=== PATIENT | male | born 1935 | race Caucasian/White ===

== ENCOUNTER 2020-07-16 06:47 | Inpatient (IN) | payer OTHER, MEDICARE ==
[~2020-07-16] VITALS: Ht 177.8 cm; Wt 113.1 kg
[~2020-07-16 06:47] MED LIST: CEPH500 PO; HYDACE5 PO; PRED20 PO
[2020-07-16 07:11] LABS: BASOPHILS ABSOLUTE AUTO 0.07 K/mm3 (0.00-0.23); BASOPHILS PERCENT AUTO 1 % (0-2); EOSINOPHILS PERCENT AUTO 1 % (0-6); Hematocrit 37.4 % (37.0-53.0); Hemoglobin 11.3 g/dL (13.5-17.5); IMMATURE GRAN ABSOLUTE AUTO 0.11 K/mm3 (0.00-0.10); IMMATURE GRAN PERCENT AUTO 1 % (0-1); LYMPHOCYTES ABSOLUTE AUTO 1.37 K/mm3 (0.84-5.20); LYMPHOCYTES PERCENT AUTO 9 % (21-46); MONOCYTES ABSOLUTE AUTO 1.06 K/mm3 (0.16-1.47); MONOCYTES PERCENT AUTO 7 % (4-13); Mean Corpuscular HGB 24.5 pg (26.0-34.0); Mean Corpuscular HGB Conc 30.2 g/dL (31.5-36.5); Mean Corpuscular Volume 81 fL (80-100); Mean Platelet Volume 11.2 fL (9.1-12.4); NEUTROPHILS ABSOLUTE AUTO 12.26 K/mm3 (1.96-9.15); NEUTROPHILS PERCENT AUTO 82 % (41-73); Platelet Count 294 K/mm3 (150-400); RDW Standard Deviation 50.2 fL (35.1-46.3); Red Blood Cell Count 4.61 M/mm3 (4.30-5.90); White Blood Cell Count 14.97 K/mm3 (4.00-11.30)
[2020-07-16 07:24] LABS: Alanine Aminotransfer (ALT/SGP 13 U/L (12-78); Albumin, Blood 3.1 g/dL (3.4-5.0); Albumin/Globulin Ratio 0.6 (0.8-1.8); Alk Phos 108 U/L (50-136); Anion Gap 5 mmol/L (6-16); Aspartate Aminotrans (AST/SGOT 8 U/L (12-37); Bilirubin, Total 0.4 mg/dL (0.1-1.0); Blood Urea Nitrogen 19 mg/dL (8-24); Bun/Creatinine Ratio 22.6 (12.0-20.0); CO2, Blood 30 mmol/L (21-32); Chloride, Blood 100 mmol/L (98-108); Creatinine, Blood 0.84 mg/dL (0.60-1.20); Globulin, Blood 4.8 g/dL (2.2-4.0); Glomerular Filtration Rate >60 (60-); Glucose, Blood 133 mg/dL (70-99); Potassium, Blood 3.3 mmol/L (3.5-5.5); Sodium, Blood 135 mmol/L (136-145); Total Protein, Blood 7.9 g/dL (6.4-8.2)
[2020-07-16 08:15] LABS: Source, Urine Catheter
[2020-07-16 08:23] LABS: Appearance, Urine Cloudy (Clear); Bilirubin, Urine Neg (Neg); Blood, Urine 5+ (Neg); Color, Urine Yellow (P-Yellow); Glucose Qualitative, Urine Neg (Neg); Ketones, Urine Neg (Neg); Leukocyte Esterase, Urine 3+ (Neg); Nitrite, Urine Pos (Neg); Protein, Urine 2+ (Neg); Specific Gravity, Urine 1.015 (1.003-1.022); Urobilinogen, Urine NORM (Normal)
[2020-07-16 08:48] LABS: Bacteria Many /hpf; Red Blood Cells, Urine 50-100 /hpf (0-2); Squamous Epithelial Cells Not Seen /hpf (Few); White Blood Cells, Urine TNTC /hpf (0-5)
[2020-07-16] MEDS ORDERED: CHLO25B PO (16:34)
[2020-07-16] MEDS ORDERED: VITAMIN D31000 UNI1 PO (16:34)
[2020-07-16] MEDS ORDERED: TAMS.4ER PO (16:35)
[2020-07-16] MEDS ORDERED: DICLOFENAC SOD100 GM TOP (16:35)
--- NOTE | 2020-07-16 17:06 | NUR ---
NEW ER ADMIT PT ARRIVE TO RM 1300. HEAVY 1 ASSIST STAND/PIVOT FROM GURNEY TO BED. STATE @ HOME USES MOTORIZED W/C, DOES NOT AMBULATE HOWEVER TRIES TO STAND w FWW OFTEN & PERFORM ROM TO MAINTAIN STRENGTH. HE IS A/O X4, SOMEWHAT [place]. PLEASANT, COOPERATIVE AFFECT. DX UTI/SEPSIS, HE WAS GIVEN IV ROCEPHIN IN ER. PAINFUL URINARY RETENTION RELIEVED IN ER, QUINN CATH PLACED, DRNG CLOUDY/MILKY URINE. KENTRELL BOSHERYL SCHWARTZ BLE IN PLACE, PT STATE HE WAS SCHEDULED TO HAVE CHANGED WEEKLY- TOMORROW @ [place]. PT ORIENTED TO , CALL SYSTEM, FALL PRECAUTONS. VSS. ORDER FROM TO CHANGE KENTRELL BOOTS RECIEVED.
--- NOTE | 2020-07-17 04:33 | NUR ---
SUMMARY: PT A/OX4, IS SLIGHTLY [place] BUT IS PLEASANT/COOPERATIVE W/CARE AND SPECIFIES NEEDS. JONATHON BOOTS TO BLE'S WERE CHANGED ON DAY SHIFT AND REMAIN C/D/I. HE C/O MILD R.LEG DISCOMFORT AND SAID L.HEEL FELT "RAW". HEELS WAS WARM BUT INSPECTED TO BE WNL AND STAFF ENSURED JONATHON BOOTS WEREN'T TOO TIGHT AND WERE FREE OF CREASES/WRINKLES. DELICIA HOSE WERE REMOVED AND FEET ELEVATED IN BED FOR IMPROVEMENT IN COMFORT. TOES ARE COOL BILATERALLY BUT CAP REFILL INTACT AND TOPS/BOTTOMS OF FEET WERE WARM TO TOUCH. IVF INFUSING AND ABX WERE RECEIVED IN ER FOR UTI. QUINN IS PATENT/DRAINING. PT ASSISTED W/REPOSITIONING T/O NOCTE AND USE MOTORIZED SCOOTER AT BASELINE. BED ALARM ON FOR FALL RISK BUT PT KNOWS TO CALL FOR ASSIST OOB. HE'S A 2P PIVOT T/F TO CHAIR OR BSC. NO ACUTE CHANGES, VSS/AFEBRILE. WCTM AND REPORT TO DAY RN.
[2020-07-17 05:22] LABS: BASOPHILS ABSOLUTE AUTO 0.06 K/mm3 (0.00-0.23); BASOPHILS PERCENT AUTO 1 % (0-2); EOSINOPHILS ABSOLUTE AUTO 0.18 K/mm3 (0.00-0.68); EOSINOPHILS PERCENT AUTO 2 % (0-6); Hematocrit 32.3 % (37.0-53.0); Hemoglobin 9.7 g/dL (13.5-17.5); IMMATURE GRAN ABSOLUTE AUTO 0.04 K/mm3 (0.00-0.10); IMMATURE GRAN PERCENT AUTO 0 % (0-1); LYMPHOCYTES ABSOLUTE AUTO 1.32 K/mm3 (0.84-5.20); LYMPHOCYTES PERCENT AUTO 13 % (21-46); MONOCYTES PERCENT AUTO 8 % (4-13); Mean Corpuscular HGB 24.6 pg (26.0-34.0); Mean Corpuscular Volume 82 fL (80-100); Mean Platelet Volume 11.5 fL (9.1-12.4); NEUTROPHILS ABSOLUTE AUTO 7.59 K/mm3 (1.96-9.15); NEUTROPHILS PERCENT AUTO 76 % (41-73); Platelet Count 242 K/mm3 (150-400); RDW Coefficient Variation 16.8 % (11.7-14.2); Red Blood Cell Count 3.94 M/mm3 (4.30-5.90); White Blood Cell Count 9.99 K/mm3 (4.00-11.30)
[2020-07-17 05:51] LABS: Anion Gap 2 mmol/L (6-16); Blood Urea Nitrogen 15 mg/dL (8-24); Bun/Creatinine Ratio 21.2 (12.0-20.0); CO2, Blood 33 mmol/L (21-32); Calcium, Blood 8.8 mg/dL (8.5-10.1); Chloride, Blood 104 mmol/L (98-108); Creatinine, Blood 0.71 mg/dL (0.60-1.20); Glomerular Filtration Rate >60 (60-); Glucose, Blood 107 mg/dL (70-99); Potassium, Blood 3.7 mmol/L (3.5-5.5); Sodium, Blood 139 mmol/L (136-145)
[2020-07-17] MEDS ORDERED: CEPH500 PO (16:46)
--- NOTE | 2020-07-17 17:43 | NUR ---
PT DISCHARGED THE PT VERBALIZED UNDERSTANDING OF THE DC INSTRUCTIONS, THE PTS PRESCRIPTIONS WERE FAXED TO THE [facility] REQUESTED, THE PT SAID THAT HIS CLOUD ENGINEER WOULD BE ABLE TO PROPERTY MANAGEMENT SPECIALIST THE PRESCRIPTIONS [place], [facility], THE SAID THEY WOULD CALL THE PATIENT TO SCHEDULE THE UROLOGY CLINIC WAS ALSO CALLED AND A MESSAGE WAS LEFT WITH THEM TO CALL THE PATIENT AND SCHEDULE AN APPOINTMENT, THE PT WAS TRANSFERED VIA WHEELCHAIR ACCOMPANIED BY A [employer] QUALITY CONTROL INDUSTRIAL ENGINEER, THE PT WAS DISCHARGED WITH A QUINN CATHETER AND INSTUCTED ON CARE FOR THE CATHETER, HOME HEALTH WAS ORDERED FOR THE PT
== END 2020-07-17 17:34 | disposition home health service (06) | DRG 872 ==
LOC: ER 06:47 → MEDS 06:48
PROVIDERS: Emergency Medicine; Nurse Practitioner Acute Care; ADMIT Internal Medicine
DX: A41.9 Sepsis, unspecified organism (principal); N39.0 Urinary tract infection, site not specified; F41.9 Anxiety disorder, unspecified; I48.91 Unspecified atrial fibrillation; F17.210 Nicotine dependence, cigarettes, uncomplicated; E87.6 Hypokalemia; I71.4 Abdominal aortic aneurysm, without rupture; E66.01 Morbid (severe) obesity due to excess calories; R33.8 Other retention of urine; I10 Essential (primary) hypertension; N40.1 Benign prostatic hyperplasia with lower urinary tract symptoms; Z85.51 Personal history of malignant neoplasm of bladder; Z85.46 Personal history of malignant neoplasm of prostate; Z68.31 Body mass index [BMI] 31.0-31.9, adult
CPT/HCPCS: 36415; 51702; 51798; 74176; 80048; 80053; 81001; 83605; 83690; 85025; 87040; 87077; 87086; 87186; 96365-59; 96375-59; 97162; 97530; 99285-25; A9270; G0103; J0696; J1170; J1650; J2405; J7030

== ENCOUNTER 2021-05-27 14:20 | Inpatient (IN) | payer OTHER ==
[~2021-05-27] VITALS: Ht 177.8 cm; Wt 123.4 kg
[~2021-05-27 14:20] MED LIST changes: +CHLO25B PO; +DICLOFENAC SOD100 GM TOP; +TAMS.4ER PO; +VITAMIN D31000 UNI1 PO
[2021-05-27 15:03] LABS: BASOPHILS ABSOLUTE AUTO 0.06 K/mm3 (0.00-0.23); BASOPHILS PERCENT AUTO 1 % (0-2); EOSINOPHILS ABSOLUTE AUTO 0.02 K/mm3 (0.00-0.68); EOSINOPHILS PERCENT AUTO 0 % (0-6); Hematocrit 31.6 % (37.0-53.0); Hemoglobin 9.4 g/dL (13.5-17.5); IMMATURE GRAN PERCENT AUTO 1 % (0-1); LYMPHOCYTES ABSOLUTE AUTO 1.04 K/mm3 (0.84-5.20); LYMPHOCYTES PERCENT AUTO 8 % (21-46); MONOCYTES ABSOLUTE AUTO 1.05 K/mm3 (0.16-1.47); MONOCYTES PERCENT AUTO 8 % (4-13); Mean Corpuscular HGB 22.2 pg (26.0-34.0); Mean Corpuscular HGB Conc 29.7 g/dL (31.5-36.5); Mean Corpuscular Volume 75 fL (80-100); NEUTROPHILS ABSOLUTE AUTO 10.95 K/mm3 (1.96-9.15); NEUTROPHILS PERCENT AUTO 83 % (41-73); NRBC ABSOLUTE 0.02 K/mm3 (0.00-0.02); NRBC Auto 0.2 /100 WBC (0.0-0.2); RDW Coefficient Variation 19.1 % (11.7-14.2); RDW Standard Deviation 50.5 fL (35.1-46.3); Red Blood Cell Count 4.24 M/mm3 (4.30-5.90); White Blood Cell Count 13.22 K/mm3 (4.00-11.30)
[2021-05-27 15:04] LABS: Mean Platelet Volume 11.8 fL (9.1-12.4); Platelet Count 175 K/mm3 (150-400)
[2021-05-27 15:26] LABS: Ethanol (Alcohol), Blood, Med <3 mg/dL; Magnesium, Blood 2.1 mg/dL (1.6-2.4); Troponin I 0.018 ng/mL (0.000-0.040)
[2021-05-27 15:27] LABS: Alanine Aminotransfer (ALT/SGP 38 U/L (12-78); Albumin, Blood 3.1 g/dL (3.4-5.0); Albumin/Globulin Ratio 0.7 (0.8-1.8); Alk Phos 80 U/L (50-136); Anion Gap 6 mmol/L (6-16); Aspartate Aminotrans (AST/SGOT 180 U/L (12-37); Bilirubin, Total 0.6 mg/dL (0.1-1.0); Blood Urea Nitrogen 22 mg/dL (8-24); Bun/Creatinine Ratio 37.4 (12.0-20.0); CO2, Blood 27 mmol/L (21-32); Calcium, Blood 8.4 mg/dL (8.5-10.1); Chloride, Blood 107 mmol/L (98-108); Creatinine, Blood 0.59 mg/dL (0.60-1.20); Globulin, Blood 4.3 g/dL (2.2-4.0); Glomerular Filtration Rate >60 (60-); Glucose, Blood 96 mg/dL (70-99); Potassium, Blood 3.7 mmol/L (3.5-5.5); Sodium, Blood 140 mmol/L (136-145); Total Protein, Blood 7.4 g/dL (6.4-8.2)
[2021-05-27 15:28] LABS: CPK Creatine Kinase 6358 U/L (39-308); Creatine Kinase MB Index 0.8 (0.0-4.0)
[2021-05-27 15:52] LABS: Source, Urine Clean Catch
[2021-05-27 15:53] LABS: Influenza A, PCR NEGATIVE (NEGATIVE); Influenza B, PCR NEGATIVE (NEGATIVE); Resp Syncytial Virus, PCR NEGATIVE (NEGATIVE); SARS-Cov-2 (COVID-19) PCR, MMC NEGATIVE (NEGATIVE)
[2021-05-27 15:56] LABS: Appearance, Urine Clear (Clear); Bilirubin, Urine Neg (Neg); Blood, Urine 5+ (Neg); Color, Urine Amber (P-Yellow); Glucose Qualitative, Urine Neg (Neg); Ketones, Urine 4+ (Neg); Leukocyte Esterase, Urine 2+ (Neg); Nitrite, Urine Neg (Neg); Protein, Urine 2+ (Neg); Specific Gravity, Urine 1.025 (1.003-1.022); Urobilinogen, Urine NORM (Normal)
[2021-05-27 16:09] LABS: Amorphous Light (0-Heavy); Bacteria Few /hpf; Mucus Mod (0-Heavy); Red Blood Cells, Urine 25-50 /hpf (0-2); Squamous Epithelial Cells Few /hpf (Few)
[2021-05-27 16:15] LABS: U Amphetamine Screen Not Detected; U Barbituate Screen Not Detected; U Benzodiazapine Screen Not Detected; U Buprenorphine Screen Not Detected; U Cannabinoids Screen Not Detected; U Cocaine Screen Not Detected; U Methadone Screen Not Detected; U Methamphetamine Screen Not Detected; U Opiates Screen Not Detected; U Oxycodone Screen Not Detected; U Phencyclidine Screen Not Detected; U Propoxyphene Screen Not Detected
[2021-05-27 19:54] LABS: Source, Urine Foley catheter
[2021-05-27 20:00] LABS: Appearance, Urine Hazy (Clear); Bilirubin, Urine Neg (Neg); Blood, Urine 5+ (Neg); Color, Urine Amber (P-Yellow); Glucose Qualitative, Urine Neg (Neg); Ketones, Urine 4+ (Neg); Leukocyte Esterase, Urine 2+ (Neg); Nitrite, Urine Neg (Neg); Protein, Urine 2+ (Neg); Specific Gravity, Urine 1.025 (1.003-1.022); Urobilinogen, Urine NORM (Normal)
[2021-05-27 20:11] LABS: Red Blood Cells, Urine 25-50 /hpf (0-2); Squamous Epithelial Cells Few /hpf (Few)
[2021-05-27 20:12] LABS: Amorphous Light (0-Heavy); Bacteria Few /hpf; Mucus Light (0-Heavy)
[2021-05-27 20:12] LABS: Base Excess Venous -0.4 mmol/L; Bicarbonate Venous 24.3 mmol/L (24.0-30.0); PCO2 Venous 36.7 mmHg (38-42); pH Blood Venous 7.42 (7.34-7.37)
[2021-05-27 20:13] LABS: U Amphetamine Screen Not Detected; U Barbituate Screen Not Detected; U Benzodiazapine Screen Not Detected; U Buprenorphine Screen Not Detected; U Cannabinoids Screen Not Detected; U Cocaine Screen Not Detected; U Methadone Screen Not Detected; U Methamphetamine Screen Not Detected; U Opiates Screen Not Detected; U Oxycodone Screen Not Detected; U Phencyclidine Screen Not Detected; U Propoxyphene Screen Not Detected
[2021-05-28 04:04] LABS: BASOPHILS ABSOLUTE AUTO 0.07 K/mm3 (0.00-0.23); BASOPHILS PERCENT AUTO 1 % (0-2); EOSINOPHILS ABSOLUTE AUTO 0.09 K/mm3 (0.00-0.68); EOSINOPHILS PERCENT AUTO 1 % (0-6); Hematocrit 29.8 % (37.0-53.0); Hemoglobin 8.6 g/dL (13.5-17.5); IMMATURE GRAN ABSOLUTE AUTO 0.05 K/mm3 (0.00-0.10); IMMATURE GRAN PERCENT AUTO 1 % (0-1); LYMPHOCYTES ABSOLUTE AUTO 1.29 K/mm3 (0.84-5.20); LYMPHOCYTES PERCENT AUTO 12 % (21-46); MONOCYTES ABSOLUTE AUTO 0.85 K/mm3 (0.16-1.47); MONOCYTES PERCENT AUTO 8 % (4-13); Mean Corpuscular HGB 22.2 pg (26.0-34.0); Mean Corpuscular HGB Conc 28.9 g/dL (31.5-36.5); Mean Corpuscular Volume 77 fL (80-100); Mean Platelet Volume 11.5 fL (9.1-12.4); NEUTROPHILS ABSOLUTE AUTO 8.43 K/mm3 (1.96-9.15); NEUTROPHILS PERCENT AUTO 78 % (41-73); Platelet Count 173 K/mm3 (150-400); RDW Coefficient Variation 19.1 % (11.7-14.2); RDW Standard Deviation 52.6 fL (35.1-46.3); Red Blood Cell Count 3.87 M/mm3 (4.30-5.90); White Blood Cell Count 10.78 K/mm3 (4.00-11.30)
[2021-05-28 04:30] LABS: Alanine Aminotransfer (ALT/SGP 39 U/L (12-78); Albumin, Blood 2.6 g/dL (3.4-5.0); Albumin/Globulin Ratio 0.8 (0.8-1.8); Alk Phos 66 U/L (50-136); Anion Gap 7 mmol/L (6-16); Aspartate Aminotrans (AST/SGOT 179 U/L (12-37); Bilirubin, Total 0.4 mg/dL (0.1-1.0); Blood Urea Nitrogen 17 mg/dL (8-24); Bun/Creatinine Ratio 32.3 (12.0-20.0); CO2, Blood 25 mmol/L (21-32); Calcium, Blood 7.8 mg/dL (8.5-10.1); Chloride, Blood 111 mmol/L (98-108); Creatinine, Blood 0.53 mg/dL (0.60-1.20); Globulin, Blood 3.1 g/dL (2.2-4.0); Glomerular Filtration Rate >60 (60-); Glucose, Blood 83 mg/dL (70-99); Potassium, Blood 3.6 mmol/L (3.5-5.5); Sodium, Blood 143 mmol/L (136-145); Total Protein, Blood 5.7 g/dL (6.4-8.2)
--- NOTE | 2021-05-28 06:16 | NUR ---
SHIFT SUMMARY PT CAN BE ALERT AT TIMES, WHEN STIMULATED WITH VERBAL OR PHYSICAL STIMULI. MORE RESPONSIVE THEN START OF SHIFT. PT SPEECH GARBLED, DIFFICULT TO UNDERSTAND. PT CAN STATE WHO HE IS AND WHERE HE IS. SP02>90% ON 2L NC PLACED IN MOUTH. PT HAS APNEIC EPISODES WHILE SLEEPING, DESATS MOSTLY TO LOW 80'S AND THEN INCREASES QUICKLY BACK TO >90%. THIS AM PT DID DESAT TO 43% BUT INCREASED BACK STAFF WENT INTO ROOM. TELEMETRY SHOWS SR/ST, HR 70'S-100'S. QUINN CATHETER PLACED THIS SHIFT, DRAINING YELLOW URINE TO GRAVITY. NO BM THIS SHIFT. PT HAS EXORIATED COCCYX, PICS PLACED IN CHART. FLUIDS INFUSED PER EMAR. CALL LIGHT INREACH.
--- NOTE | 2021-05-28 18:51 | NUR ---
SHIFT SUMMARY PT WAKES BRIEFLY TO VERBAL STIMULI W/ TOUCH, ANSWERS Q's APPROPRIATELY, THEN QUICKLY FALLS BACK TO SLEEP SNORING, UNABLE TO STAY AWAKE LONGER THAN A FEW MIN AT A TIME. PT VSS. SPO2 > 92% ON RA, BUT HAS PERIODS OF APNEA WHILE SLEEPING. PT PLACED ON CPAP BY RT. PT BUTTOCKS/COCCYX EXCORIATED & BLE RED. QUINN CATH PATENT & DRAINING.
[2021-05-29 04:00] LABS: Hematocrit 30.1 % (37.0-53.0); Hemoglobin 8.6 g/dL (13.5-17.5); Mean Corpuscular HGB 22.2 pg (26.0-34.0); Mean Corpuscular HGB Conc 28.6 g/dL (31.5-36.5); Mean Corpuscular Volume 78 fL (80-100); Mean Platelet Volume 11.7 fL (9.1-12.4); Platelet Count 181 K/mm3 (150-400); RDW Coefficient Variation 19.3 % (11.7-14.2); RDW Standard Deviation 53.1 fL (35.1-46.3); Red Blood Cell Count 3.88 M/mm3 (4.30-5.90); White Blood Cell Count 8.78 K/mm3 (4.00-11.30)
[2021-05-29 04:50] LABS: Albumin, Blood 2.5 g/dL (3.4-5.0); Anion Gap 8 mmol/L (6-16); Blood Urea Nitrogen 13 mg/dL (8-24); Bun/Creatinine Ratio 25.4 (12.0-20.0); CO2, Blood 25 mmol/L (21-32); Chloride, Blood 110 mmol/L (98-108); Creatinine, Blood 0.51 mg/dL (0.60-1.20); Glomerular Filtration Rate >60 (60-); Glucose, Blood 74 mg/dL (70-99); Phosphorus, Blood 2.2 mg/dL (2.5-4.9); Potassium, Blood 3.6 mmol/L (3.5-5.5); Sodium, Blood 143 mmol/L (136-145)
[2021-05-29 05:06] LABS: CPK Creatine Kinase 1782 U/L (39-308)
--- NOTE | 2021-05-29 06:03 | NUR ---
SHIFT SUMMARY PT ALERT, ANSWERS QUESTIONS APPROPRIATELY, NO IMPULSIVE. SP02>92% ON CPAP, PT W/ SLEEP APNEA, DESATS TO MID 80'S AND THEN INCREASES BACK TO TO BASELINE. ORAL CARE DONE Q4H, TELEMETRY SHOWS SINUS TACH, HR 100'S. PT DENIES PAIN. DENIED REPOSITIONING, STATED HES COMFORTABLE. PT SLEPT MOST OF SHIFT. QUINN CATHETER DRAINING TO GRAVITY. NO BM THIS SHIFT. CALL EDWIN MARCANO.
--- NOTE | 2021-05-29 15:03 | NUR ---
Pt. in bed and his nurses in the room attending to his needs ,ofrered prayers for him and wished him well soon
--- NOTE | 2021-05-29 15:07 | NUR ---
Met Pt. in bed and his nurses in the room attending to his needs he reports to be doing much better encouraged pt. and offered prayers.
--- NOTE | 2021-05-29 18:09 | NUR ---
SHIFT SUMMARY PT MORE ALERT T/O DAY, ABLE TO REMAIN AWAKE FOR LONGER DURATIONS. PT VSS. SPO2 > 92% ON RA WHILE AWAKE, CPAP WHILE SLEEPING. Q4H ORAL CARE PROVIDED. Q2H REPOSITIONING D/T PT DIFFICULTY REPOSITIONING SELF & BUTTOCKS/COCCYX EXCORIATED (NEW WOUND PHOTO TAKEN & PLACED IN CHART). BLE RED & SWOLLEN, UNNA BOOT DRESSINGS APPLIED TO BLE PER MD ORDER. QUINN CATH DC'd PER MD ORDER & ATTENDS APPLIED D/T PT REPORT OF EPISODES OF INCONTINENCE.
[2021-05-30 04:48] LABS: Hemoglobin 8.3 g/dL (13.5-17.5); Mean Corpuscular HGB 22.4 pg (26.0-34.0); Mean Corpuscular HGB Conc 29.6 g/dL (31.5-36.5); Mean Corpuscular Volume 76 fL (80-100); Mean Platelet Volume 11.8 fL (9.1-12.4); Platelet Count 165 K/mm3 (150-400); RDW Coefficient Variation 19.4 % (11.7-14.2); White Blood Cell Count 7.22 K/mm3 (4.00-11.30)
[2021-05-30 05:02] LABS: Albumin, Blood 2.3 g/dL (3.4-5.0); Anion Gap 7 mmol/L (6-16); Blood Urea Nitrogen 12 mg/dL (8-24); Bun/Creatinine Ratio 22.6 (12.0-20.0); CO2, Blood 27 mmol/L (21-32); CPK Creatine Kinase 752 U/L (39-308); Calcium, Blood 7.9 mg/dL (8.5-10.1); Chloride, Blood 108 mmol/L (98-108); Creatinine, Blood 0.53 mg/dL (0.60-1.20); Glomerular Filtration Rate >60 (60-); Glucose, Blood 110 mg/dL (70-99); Phosphorus, Blood 2.4 mg/dL (2.5-4.9); Potassium, Blood 3.2 mmol/L (3.5-5.5); Sodium, Blood 142 mmol/L (136-145)
--- NOTE | 2021-05-30 05:52 | NUR ---
SHIFT SUMMARY ALERT, ANSWERS QUESTIONS APPROPRIATELY, DOES NOT FALL ASLEEP MID CONVERSATION LIKE ADMIT. SP02>92% ON RA, CPAP AT NOC. TELEMETRY NSR W/ PACS, HR 90'S-100'S. PT USED URINAL TO VOID, A FEW INCONTINENT VOIDS WELL. NO BM THIS SHIFT. PT TOOK MEDS WHOLE WITH APPLESAUCE. ROTATED PILLOWS UNDER PT Q2H. ORAL CARE Q4H. PT AWAKE HALF OF NIGHT ASKING FOR COFFEE. CALL LIGHT IN REACH.
--- NOTE | 2021-05-30 18:05 | NUR ---
SHIFT SUMMARY PT A&O X4. VSS. SPO2 > 92% ON RA. CPAP @ BEDSIDE. PT MOSTLY CONTINENT, USING URINAL, WEARING ATTENDS FOR EPISODES OF INCONTINENCE. PT BUTTOCKS/COCCYX EXTENSIVELY PURPLE DISCOLORATION W/ AREAS OF EXCORIATION (WOUND PHOTO IN CHART). BLE RED & SWOLLEN, UNNA BOOT DRESSINGS IN PLACE TO BLE & BLE ELEVATED MAJORITY OF SHIFT. PT ABLE TO STAND & WEAKLY PIVOT TO & FROM CHAIR OR BED TODAY W/ 2 PERSON MOD/MAX ASSIST.
[2021-05-31 03:46] LABS: Albumin, Blood 2.4 g/dL (3.4-5.0); Anion Gap 4 mmol/L (6-16); Blood Urea Nitrogen 12 mg/dL (8-24); Bun/Creatinine Ratio 23.6 (12.0-20.0); CO2, Blood 29 mmol/L (21-32); CPK Creatine Kinase 487 U/L (39-308); Calcium, Blood 8.1 mg/dL (8.5-10.1); Chloride, Blood 108 mmol/L (98-108); Creatinine, Blood 0.51 mg/dL (0.60-1.20); Glomerular Filtration Rate >60 (60-); Glucose, Blood 126 mg/dL (70-99); Potassium, Blood 3.5 mmol/L (3.5-5.5); Sodium, Blood 141 mmol/L (136-145)
--- NOTE | 2021-05-31 07:38 | NUR ---
SHIFT SUMARY PT AO T/O SHIFT. HEARD TALKING TO HIMSELF IN ROOM AT TIMES AND CALLING TO STAFF DESPITE VERBALIZING UNDERSTANDING OF NEED TO USE CALL LIGHT. PT DOES NOT ATTEMPT TO LEAVE BED W/O ASSISTANCE. SR 90'S-LOW 100'S. SATS 93-96% ON RA T/O SHIFT. TURNS T/O NIGHT TO ENSURE PT STAYS OFF OF EDY AREA FOR EXTENDED PERIODS. INCONTINENT OF URINE T/O NIGHT. REQUESTS TO USE URINAL. USUALLY EMPTIES 100-150 MLS INTO URINAL AFTER SOILING ATTENDS. TOLERATED PO MEDS W/APPLESAUCE. TOLERATED SIPS OF WATER W/STRAW.
--- NOTE | 2021-05-31 11:28 | NUR ---
PT NOT ABLE TO COUGH SPUTUM FOR SAMPLE AT THIS TIME.
--- NOTE | 2021-05-31 12:00 | NUR ---
Physical therapy in to see patient. Patient tells therapist he has special equipment at home that helps him mobilize. Pt adamantly refuses to go to [facility] facility when it is discussed as part of his discharge plan.
--- NOTE | 2021-05-31 14:28 | NUR ---
Patient sitting up on edge of bed. Observed patient calling someone on his cellphone and asking them to pick him up. Call placed to Dr Sainz to notify that he would like to leave against medical advice. Provider states she will touch base with physical therapy and consider sending patient home.
[2021-05-31] MEDS ORDERED: METO25 PO (15:18)
[2021-05-31] MEDS ORDERED: ASPI81CH PO (15:19)
[2021-05-31] MEDS ORDERED: TAMS.4ER PO (15:19)
[2021-05-31] MEDS ORDERED: DOCU100 PO (15:20)
--- NOTE | 2021-05-31 15:47 | NUR ---
PT DISCHARGED TO HOME WITH ALL BELONGINGS, IV'S REMOVED. PT EDUCATION COMPLETED AND PAPER DOCUMENT SIGNED BY PT. PT TRANSPORTED HOME BY FRIEND. LEFT UNIT BY WHEELCHAIR AT 1545.
== END 2021-05-31 15:45 | disposition home or self-care (01) | DRG 557 ==
LOC: ER 14:20 → ERHOLD 14:21 → PCU 17:43
PROVIDERS: Emergency Medicine; Internal Medicine; ADMIT Internal Medicine
PROC: 5A09357 Assistance with Respiratory Ventilation, Less than 24 Consecutive Hours, Continuous Positive Airway Pressure (ICD-10-PCS; principal; 2021-05-28)
DX: M62.82 Rhabdomyolysis (principal); G92.8 Other toxic encephalopathy; Z20.822 Contact with and (suspected) exposure to COVID-19; R47.81 Slurred speech; E86.0 Dehydration; E83.39 Other disorders of phosphorus metabolism; E87.6 Hypokalemia; N40.0 Benign prostatic hyperplasia without lower urinary tract symptoms; E66.9 Obesity, unspecified; Z68.36 Body mass index [BMI] 36.0-36.9, adult; G93.89 Other specified disorders of brain; I10 Essential (primary) hypertension; Z28.21 Immunization not carried out because of patient refusal; Z60.2 Problems related to living alone; D53.9 Nutritional anemia, unspecified; I89.0 Lymphedema, not elsewhere classified; F17.210 Nicotine dependence, cigarettes, uncomplicated; Z85.51 Personal history of malignant neoplasm of bladder; Z98.890 Other specified postprocedural states; Z87.440 Personal history of urinary (tract) infections; W18.30XA Fall on same level, unspecified, initial encounter
CPT/HCPCS: 0241U; 36415; 51701; 51798; 70450; 71045; 71250; 80053; 80069; 81001; 82140; 82550; 82553; 82803; 83605; 83735; 83880; 84145; 84443; 84484; 85025; 85027; 87040; 87086; 92526; 92610; 93005; 93010; 94640; 94660; 94762; 96365-59; 97110; 97112; 97162; 97166; 97530; 99285-25; A9270; G0480; J0696; J1650; J7030; J7050; J7060; J7120

== ENCOUNTER 2021-06-06 17:26 | Observation (INO) | payer OTHER ==
[~2021-06-06] VITALS: Ht 177.8 cm; Wt 118.3 kg
[~2021-06-06 17:26] MED LIST changes: +ASPI81CH PO; +DOCU100 PO; +METO25 PO
[2021-06-06 19:12] LABS: BASOPHILS ABSOLUTE AUTO 0.07 K/mm3 (0.00-0.23); BASOPHILS PERCENT AUTO 1 % (0-2); EOSINOPHILS ABSOLUTE AUTO 0.19 K/mm3 (0.00-0.68); EOSINOPHILS PERCENT AUTO 2 % (0-6); Hematocrit 32.1 % (37.0-53.0); Hemoglobin 9.3 g/dL (13.5-17.5); IMMATURE GRAN ABSOLUTE AUTO 0.06 K/mm3 (0.00-0.10); IMMATURE GRAN PERCENT AUTO 1 % (0-1); LYMPHOCYTES ABSOLUTE AUTO 1.21 K/mm3 (0.84-5.20); LYMPHOCYTES PERCENT AUTO 12 % (21-46); MONOCYTES ABSOLUTE AUTO 0.72 K/mm3 (0.16-1.47); MONOCYTES PERCENT AUTO 7 % (4-13); Mean Corpuscular HGB 21.9 pg (26.0-34.0); Mean Corpuscular Volume 76 fL (80-100); NEUTROPHILS PERCENT AUTO 79 % (41-73); Platelet Count 240 K/mm3 (150-400); RDW Coefficient Variation 19.7 % (11.7-14.2); RDW Standard Deviation 54.1 fL (35.1-46.3); Red Blood Cell Count 4.24 M/mm3 (4.30-5.90); White Blood Cell Count 10.55 K/mm3 (4.00-11.30)
[2021-06-06 19:14] LABS: Mean Platelet Volume 11.5 fL (9.1-12.4)
[2021-06-06 19:24] LABS: Alanine Aminotransfer (ALT/SGP 41 U/L (12-78); Albumin, Blood 3.1 g/dL (3.4-5.0); Albumin/Globulin Ratio 0.7 (0.8-1.8); Alk Phos 75 U/L (50-136); Anion Gap 5 mmol/L (6-16); Aspartate Aminotrans (AST/SGOT 44 U/L (12-37); Bilirubin, Total 0.3 mg/dL (0.1-1.0); Blood Urea Nitrogen 23 mg/dL (8-24); CO2, Blood 29 mmol/L (21-32); Calcium, Blood 8.7 mg/dL (8.5-10.1); Chloride, Blood 107 mmol/L (98-108); Creatinine, Blood 0.72 mg/dL (0.60-1.20); Globulin, Blood 4.4 g/dL (2.2-4.0); Glomerular Filtration Rate >60 (60-); Glucose, Blood 119 mg/dL (70-99); Potassium, Blood 3.7 mmol/L (3.5-5.5); Sodium, Blood 141 mmol/L (136-145); Total Protein, Blood 7.5 g/dL (6.4-8.2)
[2021-06-06 19:39] LABS: Source, Urine Clean Catch
[2021-06-06 19:47] LABS: Appearance, Urine Hazy (Clear); Bilirubin, Urine Neg (Neg); Blood, Urine 1+ (Neg); Color, Urine Yellow (P-Yellow); Glucose Qualitative, Urine Neg (Neg); Ketones, Urine Neg (Neg); Leukocyte Esterase, Urine 3+ (Neg); Nitrite, Urine Neg (Neg); Protein, Urine 2+ (Neg); Specific Gravity, Urine 1.025 (1.003-1.022); Urobilinogen, Urine NORM (Normal)
[2021-06-06 20:14] LABS: Amorphous Light (0-Heavy); Bacteria Few /hpf; Mucus Light (0-Heavy); Squamous Epithelial Cells Not Seen /hpf (Few); White Blood Cells, Urine 50-100 /hpf (0-5)
[2021-06-07 05:43] LABS: Anion Gap 7 mmol/L (6-16); Blood Urea Nitrogen 24 mg/dL (8-24); Bun/Creatinine Ratio 36.3 (12.0-20.0); CO2, Blood 27 mmol/L (21-32); Calcium, Blood 8.2 mg/dL (8.5-10.1); Chloride, Blood 108 mmol/L (98-108); Creatinine, Blood 0.66 mg/dL (0.60-1.20); Glomerular Filtration Rate >60 (60-); Glucose, Blood 89 mg/dL (70-99); Potassium, Blood 3.3 mmol/L (3.5-5.5); Sodium, Blood 142 mmol/L (136-145)
--- NOTE | 2021-06-07 06:02 | NUR ---
SHIFT SUMMARY PT WAS A NEW ADMIT DURING THE NIGHT, ARRIVING ON THE UNIT APPROXIMATELY 0025. PT WAS ADMITTED FOR UTI, A&O X 2-3, VERY LETHARGIC AND HARD TO WAKE WHEN ASLEEP. ON ADMIT, PT'S BLE WERE WRAPPED IN COBAN, GAUZE AND DELICIA HOSE. PT REPORTED BLE PAIN, AND TOP LAYER OF COBAN WAS REMOVED FROM WRAP, WHICH ALEVIATED PT'S PAIN. NO C/O NAUSEA OR SOB. PT ON 4L O2 VIA NC, D/T DESATTING FROM THE 90S TO THE 80S WHILE SLEEPING. PT WOULD NOT KEEP CPAP MASK ON HIS FACE. NO OTHER ACUTE CHANGES IN PT CONDITION NOTED SINCE PT ADMISSION. WILL CONTINUE TO MONITOR AND TREAT PER EMAR UNTIL HAND OFF TO DAY SHIFT RN.
[2021-06-07 12:11] LABS: Percent Saturation 7.7 % (20.0-50.0)
--- NOTE | 2021-06-07 17:18 | NUR ---
SHIFT SUMMARY PT IS ALERT AND ORIENTED X3 PLEASANT AND COOPERATIVE WITH CARE. PATIENT IS ON 4LPM OF 2 VIA NASAL CANNULA SATTING ABOVE 90% PATIENT HAS BEEN SLEEPING A LOT OF THIS SHIFT. PATIENT RECEIVED IRON THIS SHIFT. POTASSIUM SUPPLEMENT GIVEN. PATIENT WORKED WITH PHYSICAL THERAPY AND OCCUPATIONAL THERAPY SOME THIS SHIFT. PT STATED ''THEY WANTED TO EAT AND SLEEP" BLADDER SCAN ORDERED THIS SHIFT. VSS, NOTHING FURTHER TO REPORT.
[2021-06-08 05:33] LABS: Albumin, Blood 2.3 g/dL (3.4-5.0); Anion Gap 4 mmol/L (6-16); Blood Urea Nitrogen 22 mg/dL (8-24); Bun/Creatinine Ratio 31.9 (12.0-20.0); CO2, Blood 29 mmol/L (21-32); Calcium, Blood 8.5 mg/dL (8.5-10.1); Chloride, Blood 109 mmol/L (98-108); Creatinine, Blood 0.69 mg/dL (0.60-1.20); Glomerular Filtration Rate >60 (60-); Glucose, Blood 95 mg/dL (70-99); Phosphorus, Blood 2.5 mg/dL (2.5-4.9); Potassium, Blood 3.7 mmol/L (3.5-5.5); Sodium, Blood 142 mmol/L (136-145)
--- NOTE | 2021-06-08 17:45 | NUR ---
SHIFT SUMMARY THE PATIENT IS ALERT AND ORIENTED X3, PLEASANT AND COOPERATIVE WITH CARE. THE PATIENT IS MORE ALERT THIS SHIFT. THE PATIENT RECEIVED IRON, AND STOOL SOFTENERS THIS SHIFT. MEPILIX ON COCCYX REPLACED. THE PATIENT IS ON 2LPM SATTING ABOVE 90% NO ACUTE CHANGES THIS SHIFT. CALL LIGHT WITHIN REACH. BED IN LOWEST POSITION.
--- NOTE | 2021-06-08 20:23 | NUR ---
patient complaining of 8/10 lower extremity pain. he agreed to take tramadol in addition to tylenol and asked that we put hisown compression socks back on, however, his legs are too edematous to fit. Mickey compression bandages placed on both calves per patient request. will recheck frequently for distal extremity temp and pulses.
--- NOTE | 2021-06-08 23:23 | NUR ---
PATIENTS EDY RECTAL AREA AND GLUTEAS ALL RED AND PEELING. PATIENT C/O ITCH IN AREA AND DISCOMFORT WHEN BEING CLEANED AFTER INCONTINENCE. COMBINATION OF BARRIER CREAM AND SILICONE ADMINISTERED TO PROTECT SKIN. CALLL PLACED TO MD TO REQUEST NYSTATIN CREAM
[2021-06-09 05:04] LABS: BASOPHILS ABSOLUTE AUTO 0.06 K/mm3 (0.00-0.23); BASOPHILS PERCENT AUTO 1 % (0-2); EOSINOPHILS ABSOLUTE AUTO 0.44 K/mm3 (0.00-0.68); EOSINOPHILS PERCENT AUTO 6 % (0-6); Hematocrit 29.2 % (37.0-53.0); Hemoglobin 8.4 g/dL (13.5-17.5); IMMATURE GRAN ABSOLUTE AUTO 0.03 K/mm3 (0.00-0.10); IMMATURE GRAN PERCENT AUTO 0 % (0-1); LYMPHOCYTES ABSOLUTE AUTO 1.69 K/mm3 (0.84-5.20); LYMPHOCYTES PERCENT AUTO 21 % (21-46); MONOCYTES ABSOLUTE AUTO 0.62 K/mm3 (0.16-1.47); MONOCYTES PERCENT AUTO 8 % (4-13); Mean Corpuscular HGB 22.2 pg (26.0-34.0); Mean Corpuscular HGB Conc 28.8 g/dL (31.5-36.5); Mean Corpuscular Volume 77 fL (80-100); NEUTROPHILS ABSOLUTE AUTO 5.14 K/mm3 (1.96-9.15); NEUTROPHILS PERCENT AUTO 64 % (41-73); Platelet Count 202 K/mm3 (150-400); RDW Coefficient Variation 19.8 % (11.7-14.2); RDW Standard Deviation 54.9 fL (35.1-46.3); Red Blood Cell Count 3.78 M/mm3 (4.30-5.90); White Blood Cell Count 7.98 K/mm3 (4.00-11.30)
--- NOTE | 2021-06-09 05:53 | NUR ---
BAYLEE SLEPT WELL LAST NIGHT AFTER EPISODE OF INCONTINENCE AND AFTER CLEANSING, PROTECTING REDDENED AREA WITH COMBINATION BARRIER CREAM AND SILICONE LOTION. CALL TO MD AND REC'D ORDER FOR NYSTATIN CREAM TO PERIRECTAL FOLDS AND HYDROCORTISONE CREAM TO AREAS OF ITCHING AND IRRITATION. PATIENT WAS EDUCATED REGARDING IMPORTANCE OF KEEPING AREA DRY TO ALLOW CHRONICALLY DAMAP AREAS TO HEAL. HE WAS ABLE TO USE THE URINAL SUCCEESSFULLY AFTER THAT. OTHERWISE, NO OTHER CHANGES NOTED
[2021-06-09 06:28] LABS: Albumin, Blood 2.4 g/dL (3.4-5.0); Anion Gap 4 mmol/L (6-16); Blood Urea Nitrogen 17 mg/dL (8-24); Bun/Creatinine Ratio 26.9 (12.0-20.0); CO2, Blood 30 mmol/L (21-32); Calcium, Blood 8.3 mg/dL (8.5-10.1); Chloride, Blood 107 mmol/L (98-108); Creatinine, Blood 0.63 mg/dL (0.60-1.20); Glomerular Filtration Rate >60 (60-); Glucose, Blood 100 mg/dL (70-99); Phosphorus, Blood 2.6 mg/dL (2.5-4.9); Potassium, Blood 3.8 mmol/L (3.5-5.5); Sodium, Blood 141 mmol/L (136-145)
[2021-06-09 14:16] LABS: CHOL/HDL RATIO 5.6; Cholesterol 146 mg/dL (50-200); HDL Cholesterol 26 mg/dL (>39); LDL/HDL RATIO 3.4; Low Density Lipoprotein Chol 89 mg/dL (0-110); Triglycerides 153 mg/dL (30-160); Very Low Density Lipoprot Chol 30 mg/dL (6-32)
--- NOTE | 2021-06-09 16:58 | NUR ---
SHIFT SUMMARY PATIENT IS ALERT AND ORIENTED X4, PLEASANT AND COOPERATIVE WITH CARE. PATIENT HAS BEEN INCONTINET OF URINE AT TIMES THIS SHIFT. NYSTATIN CREAM APPLIED TO PATIENT'S EDY-RECTAL AREA AND GROIN. PATIENT HAD A SMALL HARD STOOL THIS SHIFT. PRN DOCUSATE GIVEN TO PATIENT. ON 2 LPM OF 02 SATTING ABOVE 90% NO ACUTE CHANGES. CALL LIGHT WITHIN REACH. THIS NURSE WILL CONTINUE TO CARE FOR THE PATIENT UNTIL SHIFT REPORT IS GIVEN TO ONCOMING NURSE.
--- NOTE | 2021-06-10 03:47 | NUR ---
BAYLEE SLEPT WELL OVERNIGHT. ONLY ONE EPISODE OF "PARTIAL" INCONTINENCE. WHEN HE DIDN'T WAKE IN TIME TO COMPLETELY GO IN THE URINAL. HE STATES ITCHING HAS BEEN MUCH BETTER TONIGHT AND DECLINED NEEDING ANY HYDROCORTISONE CREAM. NYSTATIN ADMINISTERED TO PERIRECTAL AREA AND GROIN FOLDS FOR REDNESS THAT LOOKS LIKE YEAST. NO COMPLAINTS WITH LOWER EXTREMITIES WRAPPED. DENIED NEED FOR PAIN MEDS
[2021-06-10 04:32] LABS: BASOPHILS ABSOLUTE AUTO 0.05 K/mm3 (0.00-0.23); BASOPHILS PERCENT AUTO 1 % (0-2); EOSINOPHILS ABSOLUTE AUTO 0.45 K/mm3 (0.00-0.68); EOSINOPHILS PERCENT AUTO 5 % (0-6); Hematocrit 32.2 % (37.0-53.0); Hemoglobin 9.2 g/dL (13.5-17.5); IMMATURE GRAN ABSOLUTE AUTO 0.04 K/mm3 (0.00-0.10); IMMATURE GRAN PERCENT AUTO 1 % (0-1); LYMPHOCYTES ABSOLUTE AUTO 1.61 K/mm3 (0.84-5.20); LYMPHOCYTES PERCENT AUTO 20 % (21-46); MONOCYTES ABSOLUTE AUTO 0.56 K/mm3 (0.16-1.47); MONOCYTES PERCENT AUTO 7 % (4-13); Mean Corpuscular HGB 22.3 pg (26.0-34.0); Mean Corpuscular HGB Conc 28.6 g/dL (31.5-36.5); Mean Corpuscular Volume 78 fL (80-100); NEUTROPHILS ABSOLUTE AUTO 5.56 K/mm3 (1.96-9.15); NEUTROPHILS PERCENT AUTO 67 % (41-73); Platelet Count 198 K/mm3 (150-400); RDW Coefficient Variation 19.9 % (11.7-14.2); RDW Standard Deviation 55.2 fL (35.1-46.3); Red Blood Cell Count 4.13 M/mm3 (4.30-5.90); White Blood Cell Count 8.27 K/mm3 (4.00-11.30)
[2021-06-10 04:34] LABS: Mean Platelet Volume 11.8 fL (9.1-12.4)
[2021-06-10 05:00] LABS: Albumin, Blood 2.6 g/dL (3.4-5.0); Anion Gap 4 mmol/L (6-16); Blood Urea Nitrogen 17 mg/dL (8-24); Bun/Creatinine Ratio 28.6 (12.0-20.0); CO2, Blood 30 mmol/L (21-32); Calcium, Blood 8.5 mg/dL (8.5-10.1); Chloride, Blood 105 mmol/L (98-108); Creatinine, Blood 0.59 mg/dL (0.60-1.20); Glomerular Filtration Rate >60 (60-); Glucose, Blood 110 mg/dL (70-99); Phosphorus, Blood 2.7 mg/dL (2.5-4.9); Potassium, Blood 3.9 mmol/L (3.5-5.5); Sodium, Blood 139 mmol/L (136-145)
--- NOTE | 2021-06-10 16:41 | NUR ---
SHIFT SUMMARY PT IS A&O, PLEASANT AND CO-OP. INCONTINENT OF BOWEL AND BLADDER. WILL USE THE URINAL WITH ASSISTANCE IF STAFF HAPPEN TO BE AVAILABLE AT THAT MOMENT. SKIN TO GROIN/EDY AREA AND BUTTOCK VERY EXCORIATED FROM INCONTINENCE. PT IS MORBIDLY OBESE AND PER REPORT, W/C BOUND FOR MOBILITY. CARLTON WRAPS TO BLE'S; INTACT. NO C/O PAIN. DENIED FURTHER NEEDS AT THIS TIME. CALL LT IN REACH.
--- NOTE | 2021-06-10 23:22 | NUR ---
2030 PT LYING IN BED, REPORTS PAIN L ELG, ACHES, 2-3/10, DOES NOT WANT ANY MEDS FOR IT AT THIS TIME. HAS REDNESS IN EDY AREA AND ON BOTTOM, USING NYSTATIN CREAM AND CALAZIME CREAM. PEELING SKIN ON FEET WITH SOME SCABBING ON SOME OF HIS TOES. PT DECLINES SCD'S. CARLTON WRAPS ON LE'S FOR COMPRESSION. NO OTHER APPARENT SIGNS OF DISTRESS. CALL LIGHT IS IN REACH.
--- NOTE | 2021-06-11 00:01 | NUR ---
06/10/21 2200 PT LYING IN BED, AWAKE, WATCHING TV. NO APPARENT SIGNS OF DISTRESS. CALL LIGHT IS IN REACH.
--- NOTE | 2021-06-11 00:01 | NUR ---
PT LYING IN BED, EYES CLOSED, APPEARS TO BE RESTING. BREATHING IS EVEN, UNLABOERD. NO APPARENT SIGNS OF DISTRESS. CALL LIGHT IS IN REACH.
--- NOTE | 2021-06-11 01:30 | NUR ---
PT LYING IN BED, EYES CLOSED, APPEARS TO BE RESTING. BREATHING IS EVEN, UNLABORED. NO APPARENT SIGNS OF DISTRESS. CALL LIGHT IS IN REACH.
--- NOTE | 2021-06-11 04:10 | NUR ---
PT IS AAO X 4 ON 4.5 L NC O2. REDNESS ON BOTTOM AND IN EDY AREA, USING NYSTATIN CREAM AND CALAZIME CREAM. PEELING SKIN ON FEET AND SORES/SCABS ON SOME OF HIS TOES. CARLTON WRAPS ON LE'S FOR COMPRESSION.
--- NOTE | 2021-06-11 04:10 | NUR ---
PT LYING IN BED, EYES CLOSED, APPEARS TO BE RESTING. BREATHING IS EVEN, UNLABORED. NO APPARENT SIGNS OF DISTRESS. CALL LIGHT IS IN REACH.
--- NOTE | 2021-06-11 05:33 | NUR ---
PT BEING CHANGED BY TASSEL MAKER AND ANOTHER TASSEL MAKER IS ASSITING, PT'S REDNESS ON BOTTOM HAS SOME OPEN AREAS OF SKIN BREAK DOWN. CALAZIME CREAM AND OPEN TO AIR IS BEING USED. PT TOLERATING WELL. NO OTHER APPARENT SIGNS OF DISTRESS. CALL LIGHT IS IN REACH. NO OTHER CHANGES THIS SHIFT.
--- NOTE | 2021-06-11 14:03 | NUR ---
Met pt. sitting up in bed his therapists in the room with offered prayers for pt.
--- NOTE | 2021-06-12 05:16 | NUR ---
SHIFT SUMMARY NO ACUTE CHANGES THIS SHIFT. PT SLEPT THROUGH MOST OF THIS SHIFT SO THIS NURSE HAD VERY LITTLE INTERACTION WITH HIM. HE PREFERS TO TAKE HIS MEDS WHOLE WITH APPLESAUCE. HE IS SLOW TO ANSWER BUT IS ALERT AND ORIENTED.
[2021-06-12] MEDS ORDERED: FURO40 PO (15:33)
[2021-06-12 15:58] LABS: Influenza A, PCR NEGATIVE (NEGATIVE); Influenza B, PCR NEGATIVE (NEGATIVE); Resp Syncytial Virus, PCR NEGATIVE (NEGATIVE); SARS-Cov-2 (COVID-19) PCR, MMC NEGATIVE (NEGATIVE)
[2021-06-12] MEDS ORDERED: KLOR-CON 1010 ME1 PO (17:29)
--- NOTE | 2021-06-12 17:29 | NUR ---
Shift Summary A/Ox3. Pleasant and cooperative with care. Worked with PT/OT today, tolerated well. Appetite is good. Continent/incontinent, uses urinal at bedside but sometimes spills. Patient reports being w/c bound at home. Mickey wraps to BLE d/t chronic lymphedema, patient reports he sees wound care at [facility] weekly. Pedal pulses audible with doppler L>R, Dr. Nunn informed. No pain issues this shift. Patient is being [facility] transferred to [facility] in [place], transport to molded goods spot picker this evening via ambulance. Report called and given to JOEL Tanner. Patient will be dicharged with IV access.
== END 2021-06-12 18:37 | disposition short-term general hospital (02) ==
LOC: ER 17:26 → MEDS 17:27 → PCU 17:27 → MEDS 06-07 00:28
PROVIDERS: Family Medicine; Student in an Organized Health Care Education/Training Program; ADMIT Internal Medicine
DX: N39.0 Urinary tract infection, site not specified (principal); I70.263 Atherosclerosis of native arteries of extremities with gangrene, bilateral legs; R53.81 Other malaise; J96.01 Acute respiratory failure with hypoxia; I11.0 Hypertensive heart disease with heart failure; I50.31 Acute diastolic (congestive) heart failure; I89.0 Lymphedema, not elsewhere classified; E87.6 Hypokalemia; D50.9 Iron deficiency anemia, unspecified; D63.8 Anemia in other chronic diseases classified elsewhere; F17.210 Nicotine dependence, cigarettes, uncomplicated; Z79.82 Long term (current) use of aspirin; Z85.51 Personal history of malignant neoplasm of bladder; E88.09 Other disorders of plasma-protein metabolism, not elsewhere classified
CPT/HCPCS: 0241U; 36415; 51701; 71045; 80048; 80053; 80061; 80069; 81001; 82607; 82728; 82746; 82947; 83540; 83550; 83880; 85025; 87086; 93005; 93010; 93306; 93925; 93970; 94660; 94762; 96365-59; 96367; 96372; 96375; 96375-59; 96376; 97110; 97162; 97166; 97530; 97530-CO; 97535; 99285-25; A9270; G0378; J0696; J1650; J1885; J1940; J2916; J3010; J7050

== ENCOUNTER 2022-03-26 01:05 | Emergency (ER) | payer OTHER ==
[~2022-03-26] VITALS: Ht 177.8 cm; Wt 112.9 kg
[~2022-03-26 01:05] MED LIST changes: +FURO40 PO; +KLOR-CON 1010 ME1 PO
[2022-03-26] MEDS ORDERED: CEPH500 PO (01:47)
== END 2022-03-26 04:48 | disposition home or self-care (01) ==
LOC: ER 01:05
DX: S81.812A Laceration without foreign body, left lower leg, initial encounter (principal); W25.XXXA Contact with sharp glass, initial encounter; I10 Essential (primary) hypertension; F17.210 Nicotine dependence, cigarettes, uncomplicated; Z23 Encounter for immunization; Z79.899 Other long term (current) drug therapy; Z79.82 Long term (current) use of aspirin
CPT/HCPCS: 12034; 99283-25

== ENCOUNTER 2022-03-31 11:40 | Inpatient (IN) | payer OTHER, MEDICARE ==
[~2022-03-31] VITALS: Ht 172.7 cm; Wt 110.6 kg
[2022-03-31 12:53] LABS: Base Excess Venous -12.3 mmol/L; Bicarbonate Venous 15.1 mmol/L (24.0-30.0); PCO2 Venous 43.7 mmHg (38-42)
[2022-03-31 12:54] LABS: BASOPHILS ABSOLUTE AUTO 0.05 K/mm3 (0.00-0.23); BASOPHILS PERCENT AUTO 0 % (0-2); EOSINOPHILS PERCENT AUTO 0 % (0-6); Hematocrit 37.6 % (37.0-53.0); Hemoglobin 11.8 g/dL (13.5-17.5); IMMATURE GRAN ABSOLUTE AUTO 0.19 K/mm3 (0.00-0.10); IMMATURE GRAN PERCENT AUTO 1 % (0-1); LYMPHOCYTES ABSOLUTE AUTO 0.66 K/mm3 (0.84-5.20); LYMPHOCYTES PERCENT AUTO 3 % (21-46); MONOCYTES ABSOLUTE AUTO 0.68 K/mm3 (0.16-1.47); MONOCYTES PERCENT AUTO 3 % (4-13); Mean Corpuscular HGB 26.2 pg (26.0-34.0); Mean Corpuscular HGB Conc 31.4 g/dL (31.5-36.5); Mean Corpuscular Volume 84 fL (80-100); Mean Platelet Volume 12.1 fL (9.1-12.4); NEUTROPHILS ABSOLUTE AUTO 21.74 K/mm3 (1.96-9.15); NEUTROPHILS PERCENT AUTO 93 % (41-73); Platelet Count 235 K/mm3 (150-400); RDW Coefficient Variation 17.1 % (11.7-14.2); RDW Standard Deviation 51.8 fL (35.1-46.3); White Blood Cell Count 23.32 K/mm3 (4.00-11.30)
[2022-03-31 12:57] LABS: pH Blood Venous 7.17 (7.34-7.37)
[2022-03-31 13:08] LABS: Ethanol (Alcohol), Blood, Med <3 mg/dL
[2022-03-31 13:14] LABS: Alanine Aminotransfer (ALT/SGP 55 U/L (12-78); Albumin, Blood 2.8 g/dL (3.4-5.0); Albumin/Globulin Ratio 0.7 (0.8-1.8); Alk Phos 100 U/L (50-136); Anion Gap 17 mmol/L (6-16); Aspartate Aminotrans (AST/SGOT 147 U/L (12-37); Bilirubin, Total 0.5 mg/dL (0.1-1.0); Blood Urea Nitrogen 46 mg/dL (8-24); Bun/Creatinine Ratio 76.2 (12.0-20.0); CO2, Blood 17 mmol/L (21-32); CPK Creatine Kinase 2390 U/L (39-308); Calcium, Blood 8.9 mg/dL (8.5-10.1); Chloride, Blood 111 mmol/L (98-108); Globulin, Blood 4.2 g/dL (2.2-4.0); Glomerular Filtration Rate 94 (60-); Glucose, Blood 134 mg/dL (70-99); Potassium, Blood 3.7 mmol/L (3.5-5.5); Sodium, Blood 145 mmol/L (136-145)
[2022-03-31 13:33] LABS: Creatine Kinase MB 88.7 ng/mL (0.0-3.6); Creatine Kinase MB Index 3.7 (0.0-4.0)
[2022-03-31 14:52] LABS: Influenza A, PCR NEGATIVE (NEGATIVE); Influenza B, PCR NEGATIVE (NEGATIVE); Resp Syncytial Virus, PCR NEGATIVE (NEGATIVE); SARS-Cov-2 (COVID-19) PCR, MMC NEGATIVE (NEGATIVE)
[2022-03-31 16:49] LABS: PCO2 Arterial 32.4 mmHg (35-45); PO2 Arterial 81.4 mmHg (80-100)
[2022-03-31 16:50] LABS: pH Blood Arterial 7.28 (7.35-7.45)
[2022-03-31 17:40] LABS: International Normalized Ratio 1.69; Prothrombin Time Results 17.1 Sec (9.7-11.5)
--- NOTE | 2022-03-31 18:51 | NUR ---
SUMMARY. PT arrived to ICU at approximately 1700. Pt arousable but confused, unable to answer questions or follow commands. Pt has previous incision/laceration on r/thigh, surtures in place. Multiple wounds to both feet, buttocks, thighs. Photos taken. IV access in SUPA, LH. VS stable. See assessment for further details, will report off to nightshift RN.
[2022-03-31 23:08] LABS: Source, Urine Foley catheter
[2022-03-31 23:18] LABS: Appearance, Urine Hazy (Clear); Bilirubin, Urine Neg (Neg); Blood, Urine 4+ (Neg); Color, Urine Yellow (P-Yellow); Glucose Qualitative, Urine Neg (Neg); Ketones, Urine 4+ (Neg); Leukocyte Esterase, Urine 3+ (Neg); Nitrite, Urine Neg (Neg); Protein, Urine 2+ (Neg); Specific Gravity, Urine 1.025 (1.003-1.022); Urobilinogen, Urine NORM (Normal)
[2022-03-31 23:57] LABS: White Blood Cells, Urine 50-100 /hpf (0-5)
[2022-03-31 23:58] LABS: Bacteria Many /hpf; Hyaline Casts 0-2 /lpf (0-2); Mucus Light (0-Heavy); Squamous Epithelial Cells Few /hpf (Few); Transitional Epithelial Cells Few /hpf (0-Rare)
[2022-04-01 03:47] LABS: BASOPHILS ABSOLUTE AUTO 0.03 K/mm3 (0.00-0.23); BASOPHILS PERCENT AUTO 0 % (0-2); EOSINOPHILS PERCENT AUTO 0 % (0-6); Hematocrit 30.3 % (37.0-53.0); Hemoglobin 9.7 g/dL (13.5-17.5); IMMATURE GRAN PERCENT AUTO 1 % (0-1); LYMPHOCYTES ABSOLUTE AUTO 1.06 K/mm3 (0.84-5.20); LYMPHOCYTES PERCENT AUTO 6 % (21-46); MONOCYTES ABSOLUTE AUTO 0.78 K/mm3 (0.16-1.47); MONOCYTES PERCENT AUTO 5 % (4-13); Mean Corpuscular HGB 26.4 pg (26.0-34.0); Mean Corpuscular Volume 83 fL (80-100); Mean Platelet Volume 11.5 fL (9.1-12.4); NEUTROPHILS ABSOLUTE AUTO 14.61 K/mm3 (1.96-9.15); NEUTROPHILS PERCENT AUTO 88 % (41-73); Platelet Count 194 K/mm3 (150-400); RDW Coefficient Variation 17.5 % (11.7-14.2); RDW Standard Deviation 51.6 fL (35.1-46.3); Red Blood Cell Count 3.67 M/mm3 (4.30-5.90); White Blood Cell Count 16.58 K/mm3 (4.00-11.30)
[2022-04-01 04:06] LABS: Albumin, Blood 2.3 g/dL (3.4-5.0); Albumin/Globulin Ratio 0.7 (0.8-1.8); Bilirubin, Total 0.3 mg/dL (0.1-1.0); Bun/Creatinine Ratio 72.6 (12.0-20.0); Calcium, Blood 8.1 mg/dL (8.5-10.1); Creatinine, Blood 0.62 mg/dL (0.60-1.20); Free Thyroxine 0.98 ng/dL (0.70-1.60); Globulin, Blood 3.5 g/dL (2.2-4.0); Potassium, Blood 3.6 mmol/L (3.5-5.5); Total Protein, Blood 5.8 g/dL (6.4-8.2)
[2022-04-01 05:54] LABS: PCO2 Arterial 38.3 mmHg (35-45); PO2 Arterial 78.9 mmHg (80-100); pH Blood Arterial 7.35 (7.35-7.45)
--- NOTE | 2022-04-01 06:07 | NUR ---
PT REMAINS LETHARGIC. AWAKENS TO VERBAL STIMULI BUT DOES NOT ANSWER ORIENTATION QUESTIONS AND IS UNABLE TO GIVE HISTORY. DILAUDID GIVEN ONE TIME, WHICH DROPS BP FOR A PERIOD OF TIME. EXTENSIVE WOUNDS THROUGHOUT BODY, WOUND CARE CONSULTED. GLUE MIXER CONSULTED D/T FACT THAT PT DISCHARGED HIMSELF FROM ASSISTED LIVING. QUINN INSERTED AND DRAINING TO GRAVITY, OPAQUE MUCOUSY URINE NOTED. UA SENT AND CAME BACK POSITIVE FOR BLOOD, KETONES, PROTEIN AND BACTERIA. URINE SENT FOR CULTURE. 1/2NS 100MEQ BICARB INFUSING AT 100ML/HR. 2.5L NC VS ROOM AIR.
--- NOTE | 2022-04-01 09:58 | NUR ---
SHIFT ASSESSMENT PT WAKENS EASILY TO VERBAL STIMULI, INTERMITTENTLY MAKING SENSE. INITIALLY PT NOT STATING NAME. DURING TURNS PT BECAME MORE ALERT, STATES NAME AND , UNABLE TO RECEIVE DETAILED HX FROM PT. PT MOVING ALL EXTREMITIES BUT EXTREMELY WEAK. CHRONIC WOUNDS TO BACKSIDE, SEE CHART/ PICTURES FOR ALL WOUNDS. WOUND CARE CONSULTED, AWAITING THEIR SERVICES. QUINN CATH PATENT, DRAINING TO GRAVITY. VSS AT THIS TIME.
--- NOTE | 2022-04-01 10:09 | NUR ---
BRIEF SYNOPSIS OF PAST EVENTS INFORMATION OBTAINED FROM SIVAN TUBBS, AUTORIZED REP OF PATIENT. PT RELEASED FROM [place] RECENTLY WHERE HE WAS BEING TREATED FOR APPROXIMATELY 1-YEAR. PT DC'D TO [facility] FROM [place] WHERE HE STAYED FOR A SHORT AMNT OF TIME, PT CHOSE TO LEAVE [facility] TO HOME. AT HOME PT RECEIVING HOME HEALTH SERVICES (UNSURE WHICH PROVIDER) WHOM FOUND HIM DOWN THURSDAY. [facility] WORKING WITH [facility] ([facility]) LOOKING FOR PENITENTIARY FACILITY, POTENTIALLY ONE IN [place]. [facility] PHONE- [phone].
--- NOTE | 2022-04-01 17:58 | NUR ---
SHIFT SUMMARY PT REMAINS ALERT AND ORIENTED, FOLLOWING COMMANDS. SIGNIFICANTLY MORE ALERT THAN START OF SHIFT, CONTINUES TO HAVE BOUTS OF CONFUSION, YELLS OUT RANDOM NAMES, GRANDSON STATED PT DOES THIS AT HOME. PT TOLERATING CLEAR LIQUIDS WELL. REMAINS ON 2LPM O2 VIA NC DUE TO FREQUENT NAPS. QUINN CATH DRAINING YELLOW URINE. VSS. PT NOW PCU STATUS, AWAITING ROOM
--- NOTE | 2022-04-01 20:24 | NUR ---
PT. BROUGHT OVER AT SHIFT CHANGE FROM ICU. REPORT TAKEN AT BEDSIDE FROM JOEL GROVER. PT. SETTLED IN BED AFTER RECIEVING NIGHTLY MEDS AND IS RESTING COMFORTABLY AT THIS TIME.
[2022-04-02 04:26] LABS: Hematocrit 29.1 % (37.0-53.0); Hemoglobin 9.2 g/dL (13.5-17.5); Mean Corpuscular HGB 26.2 pg (26.0-34.0); Mean Corpuscular HGB Conc 31.6 g/dL (31.5-36.5); Mean Corpuscular Volume 83 fL (80-100); Mean Platelet Volume 12.1 fL (9.1-12.4); Platelet Count 164 K/mm3 (150-400); RDW Coefficient Variation 17.8 % (11.7-14.2); RDW Standard Deviation 53.1 fL (35.1-46.3); Red Blood Cell Count 3.51 M/mm3 (4.30-5.90); White Blood Cell Count 8.09 K/mm3 (4.00-11.30)
[2022-04-02 04:53] LABS: Bun/Creatinine Ratio 47.4 (12.0-20.0); Calcium, Blood 8.2 mg/dL (8.5-10.1); Creatinine, Blood 0.55 mg/dL (0.60-1.20); Potassium, Blood 2.8 mmol/L (3.5-5.5)
--- NOTE | 2022-04-02 06:13 | NUR ---
SHIFT SUMMARY: PT. REMAINED STABLE OVERNIGHT, VS WERE WNL AND PT. SATTED WELL ON RA. PT. STILL HAS QUINN THAT IS PATENT AND DRAINING TO GRAVITY AND PUT OUT 300 OVERNIGHT. PT. HAS NOT COMPLAINED OF PAIN AND HAS BEEN RELATIVELY COMFORTABLE. MORNING LABS CAME BACK SHOWING A POTASSIUM OF 2.8, SO IV POTASSIUM WAS ORDERED AND IS RUNNING NOW. PT. IS IN BED RESTING COMFORTABLY AT THIS TIME.
--- NOTE | 2022-04-02 18:02 | NUR ---
ASSUMED CARE OF PT AT 0700 THIS AM. NO ACUTE EVENTS T/O THE SHIFT. PT CONTINUES TO BE CONFUSED, ORIENTED TO SELF ONLY, CANNOT USE CALL LIGHT, BED ALARM ON FOR SAFETY. PT PULLING AT LINES AND TUBES, CONCEALED LINES AND TUBES, MOSTLY EFFECTIVE. PT ABLE TO TOLERATE MECHANICAL SOFT DIET, DOES NOT HAVE HIS DENTURES, SO WILL NOT ADVANCE DIET AT THIS TIME, PT REQUIRES STAFF ASSISTANCE TO EAT, CANNOT FEED HIMSELF. SEE DOCUMENTED VS AND ASSESSMENT. NO CHANGES IN PT'S OVERALL CONTIDTION NOTED. BED ALARM ON, CALL LIGHT IN REACH, WILL CONTINUE TO MONITOR AND GIVE REPORT TO NOC SHIFT RN.
[2022-04-03 03:45] LABS: BASOPHILS ABSOLUTE AUTO 0.03 K/mm3 (0.00-0.23); BASOPHILS PERCENT AUTO 0 % (0-2); EOSINOPHILS ABSOLUTE AUTO 0.03 K/mm3 (0.00-0.68); EOSINOPHILS PERCENT AUTO 0 % (0-6); Hematocrit 29.6 % (37.0-53.0); Hemoglobin 9.5 g/dL (13.5-17.5); IMMATURE GRAN ABSOLUTE AUTO 0.04 K/mm3 (0.00-0.10); IMMATURE GRAN PERCENT AUTO 1 % (0-1); LYMPHOCYTES ABSOLUTE AUTO 1.13 K/mm3 (0.84-5.20); LYMPHOCYTES PERCENT AUTO 15 % (21-46); MONOCYTES ABSOLUTE AUTO 0.49 K/mm3 (0.16-1.47); MONOCYTES PERCENT AUTO 7 % (4-13); Mean Corpuscular HGB 26.5 pg (26.0-34.0); Mean Corpuscular HGB Conc 32.1 g/dL (31.5-36.5); Mean Corpuscular Volume 83 fL (80-100); Mean Platelet Volume 12.2 fL (9.1-12.4); NEUTROPHILS ABSOLUTE AUTO 5.81 K/mm3 (1.96-9.15); NEUTROPHILS PERCENT AUTO 77 % (41-73); Platelet Count 159 K/mm3 (150-400); RDW Coefficient Variation 17.5 % (11.7-14.2); RDW Standard Deviation 52.4 fL (35.1-46.3); Red Blood Cell Count 3.59 M/mm3 (4.30-5.90); White Blood Cell Count 7.53 K/mm3 (4.00-11.30)
[2022-04-03 04:21] LABS: Bun/Creatinine Ratio 33.5 (12.0-20.0); Calcium, Blood 8.1 mg/dL (8.5-10.1); Creatinine, Blood 0.51 mg/dL (0.60-1.20); Potassium, Blood 3.2 mmol/L (3.5-5.5)
--- NOTE | 2022-04-03 06:07 | NUR ---
SALES ASSOCIATE SUMMARY ASSUMED CARE OF PATIENT AT 1900. HE IS ALERT AND ORIENTED TO SELF ONLY, BUT REORIENTABLE. FOLLOWING SOME DIRECTIONS, THOUGH CONFUSION HAS WORSENED THROUGHOUT THE SHIFT. HE CRIES OUT FOR HELP "GOING TO WORK". PT HAS SWELLING THROUGHOUT, LOWER EXTREMITIES HAVE BEEN ELEVATED. HE IS PLAYING WITH HIS QUINN LINE BUT HAS NOT PULLED IT AND IS REDIRECTABLE. PT IS A LIFT PATIENT. LUNG SOUNDS COARSE THROUGHOUT AND DIMINISHED. HE HAS BEEN SINUS ON TELE THROUGHOUT THE SHIFT. OXYGEN SATURATION REMAINS >92% ON ROOM AIR. CONTINUES TO PULL OFF TELE AND PULSE OX. PATIENT HAS BEEN TURNED EVERY TWO HOURS AND IS COOPERATIVE. PT DENIES PAIN.
--- NOTE | 2022-04-03 18:05 | NUR ---
NO ACUTE CHANGES T/O THE SHIFT. PT UP TO RECLINER CHAIR VIA LIFT TODAY. PT BACK TO BED THIS EVENING, WOUND CARE COMPLTETED, SEE WOUND PHOTOS IN CHART. PT HAS REMAINED CONFUSED T/O THE DAY, CAN TELL THE MONTH AND YEAR AND THAT IT IS FALL, BUT AT OTHER TIMES, HE IS ONLY ORIENTED TO SELF. VSS, SEE DOCUMENTED ASSESSMENT. PT UNABLE TO USE CALL LIGHT FOR NEEDS, BED ALARM ON FOR SAFETY. WILL CONTINUE TO MONITOR AND GIVE REPORT TO NOC SHIFT RN.
[2022-04-04 04:22] LABS: Hematocrit 29.4 % (37.0-53.0); Hemoglobin 9.4 g/dL (13.5-17.5); Mean Corpuscular HGB 26.3 pg (26.0-34.0); Mean Corpuscular Volume 82 fL (80-100); Mean Platelet Volume 11.9 fL (9.1-12.4); Platelet Count 163 K/mm3 (150-400); RDW Coefficient Variation 17.3 % (11.7-14.2); RDW Standard Deviation 51.3 fL (35.1-46.3); Red Blood Cell Count 3.58 M/mm3 (4.30-5.90); White Blood Cell Count 7.23 K/mm3 (4.00-11.30)
[2022-04-04 04:48] LABS: Albumin, Blood 2.1 g/dL (3.4-5.0); Anion Gap 3 mmol/L (6-16); Blood Urea Nitrogen 12 mg/dL (8-24); Bun/Creatinine Ratio 23.9 (12.0-20.0); CO2, Blood 32 mmol/L (21-32); CPK Creatine Kinase 233 U/L (39-308); Calcium, Blood 8.4 mg/dL (8.5-10.1); Chloride, Blood 110 mmol/L (98-108); Glomerular Filtration Rate 99 (60-); Glucose, Blood 106 mg/dL (70-99); Magnesium, Blood 1.9 mg/dL (1.6-2.4); Phosphorus, Blood 2.2 mg/dL (2.5-4.9); Potassium, Blood 3.6 mmol/L (3.5-5.5); Sodium, Blood 145 mmol/L (136-145)
--- NOTE | 2022-04-04 05:54 | NUR ---
STONE SPREADER OPERATOR SUMMARY ASSUMED CARE OF PT AT 1900. HE IS MORE ALERT AND COOPERATIVE THIS SHIFT THAN LAST NIGHT. PT STILL CONFUSED ON WHERE HE IS AND WHY HE CAN'T LEAVE. HE DID HAVE A SHORT PERIOD OF AFIB WITH RVR IN THE 150S BUT CONVERTED ON HIS OWN AND WAS ASYMPTOMATIC AND SLEEPING. PT STILL HAS MULTIPLE WOUNDS AND IS TURNED Q2H. LIFT SHEET USED TO REPOSITION PT. LEGS HAVE BEEN ELEVATED BUT PT CONTINUES TO HAVE BLE SWELLING AND REDNESS. BP REMAINED STABLE THROUGH THIS SHIFT. PT REFUSING TO WEAR SPO2 MONITOR THIS SHIFT EXCEPT DURING TIME OF VITALS. PT TOOK ORAL MEDICATIONS IN CHOCOLATE PUDDING. HE ATTEMPTED TO GET OUT OF BED ONCE BY SLIDING HIS LEGS AROUND BUT WAS REPOSITIONED AND REDIRECTED, SHORTLY FALLING ASLEEP.
--- NOTE | 2022-04-04 07:15 | NUR ---
Assumed care of pt at 0700. Report received from Haley MALDONADO. SpO2 90% or greater RA. SR per monitor, with PACs.
--- NOTE | 2022-04-04 13:00 | NUR ---
Dr Sainz in to see patient. Discussed wounds with provider. Wound consult placed several days ago, however have not been in to see patient. This RN placed call to wound center today to follow up, center is closed. Discussed pt's electrolytes. Provider to review.
--- NOTE | 2022-04-04 16:00 | NUR ---
Dr Doe in to see patient. Provider orders for feet to be cleansed with alcohol and dressed with xeroform and soft dressing.
--- NOTE | 2022-04-04 18:03 | NUR ---
SUMMARY Pt remains PCU status. Neuro: Often sleeping. Awakens with verbal stimulus and gentle touch. Able to stay awake as long as stimulus persists. Moves all extremities with equal strength and range of motion, although generally weak throughout. Pain: Pt experiences pain out of proportion with repositioning of legs and head of bed. Pt seems to have discomfort with R/L repositioning, but not as significant as with elevating or lowering HOB. Discussed pain with Dr Sainz, provider recommends Tylenol. Dose given. ADLS: Total care for repositioning, oral care, feeding. Unable to perform any self care activities independently or with mild assist. Respiratory: Lungs clear, diminished in bases. SpO2 90% or greater RA. Occasional cough noted. Cardiac: SR with PACs per monitor. Stable rate. No changes to edema or capillary refill since initial assessment. GI: Smear BM this shift. Bowel care started. Pt feeder for mech soft diet. Pt did not tolerated mech soft dinner, which was pasta and veggies. Diet downgraded to puree for ease of eating, considering pt does not have top dentures and has poor condition lower teeth. : Rosas catheter care performed this shift with cleansing cloths. Skin: Area of eschar noted to posterior right thigh lesion. Photographs updated. Also noted ulceration to glans penis while performing catheter care. Area cleaned and photo documented. Discussed skin breakdown with Dr Sainz. Podiatry consult obtained for bilateral feet wounds. Cleaned bilat feet wounds with alcohol, which pt tolerated very well and did not express pain or discomfort, and dressed with xeroform, ABD, and kerlex. Psychosocial: Labile. Quickly changes from angry, irritable, cussing at staff, to pleasant and cooperative.
[2022-04-05 04:23] LABS: Hematocrit 30.2 % (37.0-53.0); Hemoglobin 9.6 g/dL (13.5-17.5); Mean Corpuscular HGB 26.7 pg (26.0-34.0); Mean Corpuscular HGB Conc 31.8 g/dL (31.5-36.5); Mean Corpuscular Volume 84 fL (80-100); Mean Platelet Volume 11.9 fL (9.1-12.4); Platelet Count 188 K/mm3 (150-400); RDW Coefficient Variation 17.5 % (11.7-14.2); RDW Standard Deviation 53.4 fL (35.1-46.3); White Blood Cell Count 7.46 K/mm3 (4.00-11.30)
[2022-04-05 04:44] LABS: Albumin, Blood 2.2 g/dL (3.4-5.0); Anion Gap 3 mmol/L (6-16); Blood Urea Nitrogen 10 mg/dL (8-24); Bun/Creatinine Ratio 18.6 (12.0-20.0); CO2, Blood 31 mmol/L (21-32); Calcium, Blood 8.2 mg/dL (8.5-10.1); Chloride, Blood 107 mmol/L (98-108); Creatinine, Blood 0.54 mg/dL (0.60-1.20); Glomerular Filtration Rate 97 (60-); Glucose, Blood 101 mg/dL (70-99); Phosphorus, Blood 3.5 mg/dL (2.5-4.9); Potassium, Blood 3.7 mmol/L (3.5-5.5); Sodium, Blood 141 mmol/L (136-145)
--- NOTE | 2022-04-05 06:04 | NUR ---
ASSUMED CARE OF PT AT 1900. HE IS ALERT AND ORIENTED TO SELF AND KNOWS THAT HE IS NOT AT HOME. PT FOLLOWING SOME DIRECTIONS AND WAS ABLE TO TAKE HIS MEDICATIONS IN PUDDING. HE HAS MULTIPLE SKIN LESIONS; POWDER APPLIED TO GROIN TO AREAS OF REDNESS. HE IS AWAITING EVALUATION BY WOUND CARE NURSE. LUNG SOUNDS DIMINISHED IN THE BASES. PATIENT WAKES UP MULTIPLE TIMES REQUESTING FLUIDS, BUT IS ASLEEP SHORTLY AFTER. QUINN IN PLACE AND DRAINING YELLOW URINE TO GRAVITY. PATIENT TURNED Q2, CRIES OUT DURING THIS BUT IMMEDIATELY BEGINS SNORING AGAIN. A POWERGLIDE WAS PLACED DUE TO LACK OF PATENT IV'S AND PT HISTORY OF PULLING IV ACCESS WITH CONTINUED NEED OF IV INFUSIONS. HE REPORTS PAIN "EVERYWHERE" BUT IS REFUSING TYLENOL AND APPEARS IMPROVED WITH UNINTERRUPTED REST. PT APPEARS TO BE MORE LUCID THIS MORNING AND STATES THAT HE DOES NOT REMEMBER FALLING AT HOME. PT UPDATED ON TIMELINE FOR CARE AND IS AGREEABLE WITH THE PLAN.
--- NOTE | 2022-04-05 13:04 | NUR ---
Recieved pt to 206 via bed, he is a/ox2, pleasant and cooperative with care, follows commands well, he tells me he is at [facility] in [place], but is asking for his briefcase so he can work on taxes. no briefcase in room, reviewed with him what happened and that it is likely at home. dressings intact, call light in reach.
--- NOTE | 2022-04-05 18:07 | NUR ---
pt has slept unless disturbed, he woke to eat dinner with assist, he was a bit confused when he first came to the floor about what he needed to do, no further changes this shift. call light in reach.
--- NOTE | 2022-04-06 03:50 | NUR ---
SHIFT SUMMARY NO OVERNIGHT EVENTS. PT A/OX3, FORGETFUL, TALKING TO SELF ALOT IN HIS SLEEP. DENIES PAIN/SOB/ S/S OF DISTRESS. DRSG TO BLE C/D/I, LEGS ELEVATED. PT BEDBOUND, CONTINUING [id number]. QUINN IN PLACE, DRAINING YELLOW URINE. PT ON TELE, NSR. PT ABLE TO MAKE NEEDS KNOWN. WILL CONTINUE TO MONITOR.
--- NOTE | 2022-04-06 08:00 | NUR ---
pt laying in bed with eyes closed, wakes when spoke to but immed returns to sleep when left undisturbed, yells out about his left hip hurting when bed is reclined to reposition him, tylenol will be given, gave po meds with applesauce, he did ok with that, lungs are clear dim in bases, on r/a, resp even and unlabored, no cough noted, hrr, power glide to sharath, site is clear and, patent, btx4, abd round soft nontender, mitchell cath draining clear yellow urine, b/l legs are wrapped to mid calf in dressings., iodiform is wrapped around toes, one blister left intact to top of left foot, swelling is down, slightly pink, buttocks excoriated, mepilex in place, changing dressing today, anton, very weak, mechelle, call light in reach.
[2022-04-06 08:37] LABS: Albumin, Blood 2.3 g/dL (3.4-5.0); Anion Gap 4 mmol/L (6-16); Blood Urea Nitrogen 10 mg/dL (8-24); Bun/Creatinine Ratio 15.5 (12.0-20.0); CO2, Blood 32 mmol/L (21-32); Calcium, Blood 8.3 mg/dL (8.5-10.1); Chloride, Blood 105 mmol/L (98-108); Creatinine, Blood 0.64 mg/dL (0.60-1.20); Glomerular Filtration Rate 92 (60-); Glucose, Blood 102 mg/dL (70-99); Magnesium, Blood 1.9 mg/dL (1.6-2.4); Phosphorus, Blood 2.7 mg/dL (2.5-4.9); Potassium, Blood 3.8 mmol/L (3.5-5.5); Sodium, Blood 141 mmol/L (136-145)
--- NOTE | 2022-04-06 18:23 | NUR ---
pt had dressings changed this shift, after cleansing, is painful for him to be moved, medicated with tylenol, poor appetite, sleeps when left undisturbed, no further changes this shift, call light in reach.
--- NOTE | 2022-04-07 03:42 | NUR ---
SHIFT SUMMARY NO OVERNIGHT EVENTS. PT SLEPT WELL. DENIES ANY PAIN/SOB, S/S OF DISTRESS. PT BEDBOUND, CONTINUEING [id number]. DRESSING TO BLE WOUND C/D/I. CONTINUES IV ABX. WILL CONTINUE TO MONITOR.
--- NOTE | 2022-04-07 18:40 | NUR ---
SHIFT SUMMARY PT ALERT TO SELF BUT VERY PLEASANT. PT IS BED BOUND BUT WORKED WITH OCCUPATIONAL THERAPY THIS SHIFT. WOUND DRESSINGS ON FEET CHANGED PER EMR ORDERS. QUINN PATENT AND DRAINING TO GRAVITY. VSS.
--- NOTE | 2022-04-08 03:41 | NUR ---
SHIFT SUMMARY NO CHANGE IN PT CONDITION OVERNIGHT. PT VERY IRRITABLE AT BEGINNING OF SHIFT. PT YELLING AT STAFF, THROWING WATER, REFUSING CARE, REFUSING TURNS, REFUSING MEDICATION. AFTER PT SLEPT FOR A COUPLE HOURS, PT AGREEABLE TO CARE AND CONTINUED [id number]. COCCYX DRSG REPLACED. RC IN PLACE, DRAINING WELL. WILL CONTINUE TO MONITOR.
[2022-04-08] MEDS ORDERED: ACET500 PO (03:54)
[2022-04-08] MEDS ORDERED: ATOR40TA PO (03:55)
[2022-04-08] MEDS ORDERED: Amlodipine Bes2.5 MG PO (03:55)
[2022-04-08] MEDS ORDERED: CALCIUM CARBONATE PO (03:56)
[2022-04-08] MEDS ORDERED: GABA300 PO (03:57)
[2022-04-08] MEDS ORDERED: LEVSOD75 PO (03:57)
[2022-04-08] MEDS ORDERED: MICONAZOLE NITR85 GM TOP (03:58)
[2022-04-08] MEDS ORDERED: LOSA50 PO (03:58)
[2022-04-08] MEDS ORDERED: SENN187 PO (03:59)
[2022-04-08] MEDS ORDERED: MIRALAX17 GM PO (03:59)
--- NOTE | 2022-04-08 11:46 | NUR ---
Spiritual Care Visit. Pt. is awake in bed and welcomes my visit. Pt. is pleasant, and dusplays evidene of maintain his sense of humor. Pt. is unsettled about the years of PT he has had on his legs. Listen empathetically with a calming presence. Pt. verbalizes some of his family history, and rapport is established. Pt. displays evidence of being encouraged. Prayed for Pt. Pt. verbalized gratitude for the spiritual care visit.
--- NOTE | 2022-04-08 18:24 | NUR ---
SHIFT SUMMARY: PT A&O X2, PLEASANT AND FOLLOWS DIRECTIONS WELL. PT EVALUATED BY PT/OT, PT UP IN CHAIR FOR ALL MEALS WITH LIFT. PT ASSESSED BY WOUND CARE NURSE SANDI, NEW WOUND CARE ORDERS PLACED. PT TURNED FREQUENTLY THROUGHOUT SHIFT. PT HAD NO COMPLAINTS OF PAIN THROUGHOUT THE SHIFT. PT SLEPT MOST OF THE SHIFT. PT IN BED WITH CALL LIGHT WITHIN REACH.
--- NOTE | 2022-04-09 03:39 | NUR ---
SHIFT SUMMARY NO OVERNIGHT EVENTS. NOTED PT TO BE MORE CONFUSED TONIGHT. PT ATTEMPTING TO CLIMB OUT OF BED TO "PUT HIS CLOTHES ON" REDIRECTABLE WITH DISTRACTION. BED ALARM ON. DRSG TO BLE/COCCYX C/D/I. QUINN IN PLACE, NO ISSUES. WILL CONTINUE TO MONITOR.
[2022-04-09 13:09] LABS: Hematocrit 33.5 % (37.0-53.0); Hemoglobin 10.2 g/dL (13.5-17.5); Mean Corpuscular HGB Conc 30.4 g/dL (31.5-36.5); Mean Corpuscular Volume 86 fL (80-100); Mean Platelet Volume 11.5 fL (9.1-12.4); Platelet Count 172 K/mm3 (150-400); RDW Coefficient Variation 17.3 % (11.7-14.2); RDW Standard Deviation 53.6 fL (35.1-46.3); Red Blood Cell Count 3.92 M/mm3 (4.30-5.90); White Blood Cell Count 7.64 K/mm3 (4.00-11.30)
[2022-04-09 13:22] LABS: Albumin, Blood 2.5 g/dL (3.4-5.0); Anion Gap 4 mmol/L (6-16); Blood Urea Nitrogen 16 mg/dL (8-24); Bun/Creatinine Ratio 29.1 (12.0-20.0); CO2, Blood 29 mmol/L (21-32); Calcium, Blood 8.8 mg/dL (8.5-10.1); Chloride, Blood 106 mmol/L (98-108); Creatinine, Blood 0.55 mg/dL (0.60-1.20); Glomerular Filtration Rate 97 (60-); Glucose, Blood 127 mg/dL (70-99); Phosphorus, Blood 3.1 mg/dL (2.5-4.9); Sodium, Blood 139 mmol/L (136-145)
--- NOTE | 2022-04-09 16:19 | NUR ---
SHIFT SUMMARY PT VSS. PT VERY CONFUSED THIS SHIFT, GRASPING AT THE AIR. ASKING FOR THINGS THAT ARE NOT IN ROOM. STATING THAT HE NEEDS TO "ROW HIS BOAT TO SHORE AND COULD i HELP HIM DOCK IT?" WOUND CARE CHANGED BANDAGES AND TOOK PHOTOS. IV PATENT. PT NOT REDIRECTABLE AND CAN EVEN GET AGITATED OFTEN DURING SHIFT. PT ATTEMPTED TO GET OUT OF BED SEVERAL TIMES DURING SHIFT, WAS CLOSE BUT UNSUCCESSFUL, MEDICATED PER EMAR. QUINN DRAINING CLEAR YELLOW URINE. ATTEMPTED TO GET PT UP TO CHAIR WITH LIFT AND PT BUT UNSUCCESSFUL DUE TO CONFUSION AND LACK OF REDIRECTION. APPETITE OK. NOTIFIED OF CHANGES. BED ALARM ON, SIDE RAILS UP X3. CALL LIGHT IN REACH.
--- NOTE | 2022-04-09 16:19 | NUR ---
Advanced directive and POLST completed previously at [facility] received by fax today. Copy placed on chart and provided to medical records for scanning into EMR. Reviewed and found pt named his grandson as primary and brother as secondary proxy medical decision makers. Will assess pt tomorrow for medical decision making capabilities in regard to advanced care planning and contact surrogate decision makers to update and include in the conversation.
--- NOTE | 2022-04-09 16:29 | NUR ---
WOUND CARE ALL WOUND DRESSING CHANGED PER ORDER. ALL WOUNDS SHOWING IMPROVEMENT FROM YESTERDAY. NEW PHOTOS AND ASSESSMENTS IN HARD CHART. PT PLEASANTLY CONFUSED AND TOLERATED WELL.
--- NOTE | 2022-04-09 19:20 | NUR ---
RECEIVED BEDSIDE REPORT FROM THERESE RN. PT LYING IN BED WITH EYES CLOSED. RESP EVEN ON RA. WILL PROVIDE CARE T/O SHIFT. CALL LT IN REACH.
--- NOTE | 2022-04-09 22:47 | NUR ---
PT ALERT TO SELF. TOOK SOME MEDS WITH ALVARO. REFUSED SOME MEDS WELL. SAID THAT'S ENOUGH. DELAYED SWALLOWING. NO CHOKING. IS A LIFT A PT. INCONTINENT OF URINE AND STOOL. ORAL CARE GIVEN. WILL CONTINUE TO PROVIDE CARE. BED ALARM ON. CALL LT IN REACH.
--- NOTE | 2022-04-10 00:15 | NUR ---
PT RESTING QUIETLY. BED ALARM ON. CALL LT IN REACH.
--- NOTE | 2022-04-10 02:01 | NUR ---
PT RESTING QUIETLY. CALL LT IN REACH.
--- NOTE | 2022-04-10 04:06 | NUR ---
PT CONTINUES TO REST QUIETLY. RESP EVEN ON RA. NO NEEDS AT THIS TIME. CALL LT IN REACH. BED ALARM ON.
--- NOTE | 2022-04-10 04:43 | NUR ---
SHIFT SUMMARY: ALERT TO SELF. ON RA. TOOK MOST OF HIS MEDS ONE AT A TIME WITH CHARURONNIERosio. SAID HE HAD ENOUGH WITH TWO OF THE LARGER PILLS. PT TOLERATED MEDS WELL, NO CHOKING NOTED. DAILY DRESSINGS TO WOUNDS CHANGED BY DAYSHIFT RN WITH ANOTHER NURSE. DRESSINGS CLEAN AND INTACT. PT REPOSITIONED T/O SHIFT. PT RESTED WELL T/O SHIFT. WILL CONTINUE TO PROVIDE CARE UNTIL SHIFT REPORT.
--- NOTE | 2022-04-10 10:18 | NUR ---
LATE ENTRY/899 PT REMAINS SLEEPY. WILL AWAKEN THOUGH DOES NOT REMAIN AWAKE LONG ENOUGH TO SAFELY SWALLOW MEDS. WILL TRY AGAIN WHEN HE IS ABLE TO REMAIN AWAKE.
--- NOTE | 2022-04-10 17:33 | NUR ---
SHIFT SUMMARY PT HAS BEEN SLEEPY AND UNABLE TO REMAIN AWAKE TO SAFELY SWALLOW MEDS. HAS BEEN INCONTINENT OF URINE, SLEPT THROUGH CLEAN UP. DERRICK MAN SHAVED HIM AND HE SLEPT THROUGH THAT. HE WILL ROUSE AND OPEN EYES BUT IS UNABLE TO REMAIN AWAKE. VSS. WILL HOLD EVENING DOSE OF SEROQUEL.
--- NOTE | 2022-04-10 18:16 | NUR ---
BILAT DRESSING CHANGE DONE PER ORDER.
[2022-04-11 04:57] LABS: Hematocrit 34.2 % (37.0-53.0); Hemoglobin 10.5 g/dL (13.5-17.5); Mean Corpuscular HGB 26.3 pg (26.0-34.0); Mean Corpuscular HGB Conc 30.7 g/dL (31.5-36.5); Mean Corpuscular Volume 86 fL (80-100); Mean Platelet Volume 11.8 fL (9.1-12.4); Platelet Count 193 K/mm3 (150-400); RDW Coefficient Variation 17.3 % (11.7-14.2); RDW Standard Deviation 54.1 fL (35.1-46.3); Red Blood Cell Count 3.99 M/mm3 (4.30-5.90); White Blood Cell Count 7.27 K/mm3 (4.00-11.30)
[2022-04-11 05:19] LABS: Albumin, Blood 2.6 g/dL (3.4-5.0); Anion Gap 6 mmol/L (6-16); Blood Urea Nitrogen 19 mg/dL (8-24); Bun/Creatinine Ratio 37.4 (12.0-20.0); CO2, Blood 28 mmol/L (21-32); Calcium, Blood 8.8 mg/dL (8.5-10.1); Chloride, Blood 107 mmol/L (98-108); Creatinine, Blood 0.51 mg/dL (0.60-1.20); Glomerular Filtration Rate 99 (60-); Glucose, Blood 95 mg/dL (70-99); Phosphorus, Blood 2.9 mg/dL (2.5-4.9); Sodium, Blood 141 mmol/L (136-145)
--- NOTE | 2022-04-11 08:24 | NUR ---
TELEMARKETER TRISHA PRATT SLEPT MOST OF THE EVENING UNTIL AROUND 2300, THEN WOKE AND WAS VERY COOPERATIVE WITH CARE, ALLOWING FOR PHYSICAL ASSESSMENT AND STAYED UP TO EAT ICE CREAM WITH ASSIST OF STAFF. NO COMPLAINTS OF PAIN. DRESSINGS ALL REMAIN INTACT. TOOK MEDS MIXED WITH THE SOFT ICE CREAM. AFTER THIS, HE WOKE A FEW MORE TIMES ASKING TO HAVE HIS "PAPER PANTIES" OFF THEY DIDN'T FEEL RIGHT. VOOPERATIVE WITH POSITION AND BRIEF CHANGES EACH TIME. NO SCHEDULED SEROQUEL GIVEN.
--- NOTE | 2022-04-11 18:42 | NUR ---
SHIFT SUMMARY PT IS DOING QUITE WELL TODAY. IS A&O X 3 TO 4. COOPERATIVE & PLEASANT. WORKED WITH PHYS THERAPY, SAT UP IN CHAIR/RECLINER MOST OF THE DAY. USED LIFT TO PLACE HIM IN CHAIR AND BACK TO BED. PT USED CALL LIGHT APPROPRIATELY FOR NEEDS. MD REQUESTED CONSULT WITH DR. PEREZ TO ARRANGE GUARDIANSHIP. CONSULT SENT. PT WILL LIKELY NEED PLACEMENT UPON HOSPITAL DC. BILAT FOOT DRESSINGS C/D/I.
[2022-04-12 06:10] LABS: Albumin, Blood 2.6 g/dL (3.4-5.0); Anion Gap 4 mmol/L (6-16); Blood Urea Nitrogen 28 mg/dL (8-24); Bun/Creatinine Ratio 39.5 (12.0-20.0); CO2, Blood 31 mmol/L (21-32); Calcium, Blood 8.8 mg/dL (8.5-10.1); Chloride, Blood 105 mmol/L (98-108); Creatinine, Blood 0.71 mg/dL (0.60-1.20); Glomerular Filtration Rate 89 (60-); Glucose, Blood 97 mg/dL (70-99); Phosphorus, Blood 3.1 mg/dL (2.5-4.9); Potassium, Blood 3.8 mmol/L (3.5-5.5); Sodium, Blood 140 mmol/L (136-145)
--- NOTE | 2022-04-12 08:18 | NUR ---
ADDICTION SPECIALIST SUMMARY PATIENT MUCH MORE ALERT OVERNIGHT. SLEPT WELL AFTER HS MEDS. NO COMPLAINTS OF DISCOMFORT UNTIL THIS MORNING WHEN SANTA C/O BILATERAL HIP PAIN (APPEARS TO BE RIGHT MORE THAN LEFT) AND HE ASKED FOR TYLENOL. LEFT THIGH DRESSING REMAINS IN PLACE PATIENT GOT VERY AGITATED WHEN THIS RN TRIED TO REMOVE IT LAST NIGHT. ONCOMING RN INFORMED. DESINEX USED IN GROIN FOLDS, BARRIER CREAM MIXED WITH SILICONE TO GLUTEAL FOLDS. PATIENT CONTINUES TO PULL BRIEFS OPEN EACH TIME NEW ONES ARE PUT ON. FREQUENT OFFERING OF HELP WITH URINAL WILL HELP. PATIENT SEEMS TO TOLERATE FEMALE URINAL BETTER
--- NOTE | 2022-04-12 17:35 | NUR ---
Shift Summary A/O to self, hospital, and month/year. Conversating with staff, calling appropriately for needs. Had bedbath today. Worked with therapy. Denied pain after repositioning. Bilateral feet, buttock/coccyx, and R post thigh dressing changed. Awaiting guardianship and placement.
--- NOTE | 2022-04-13 06:43 | NUR ---
SANTA SLEPT WELL ALL NIGHT. ALERT TIMES ONE, AND VERY PLEASANTLY CONFUSED. TRIES TO ASSIST WITH REPOSITIONING AND LINEN CHANGES. INCONTINENT OF PALE YELLOW URINE X3. ONE VOID IN FEMALE URINAL OF ABOUT 25-50 ML. APAP GIVEN AT HS AND IN AM FOR BILATERAL CHRONIC HIP PAIN
--- NOTE | 2022-04-13 17:36 | NUR ---
SUMMARY- PT ALERT ORIENTED TO SELF AND PLACE. BEDBOUND AND DEPENDANT IN CARE. ROUTINE TURN AND INCONT CHANGE, ATTENDS IN USE. INCONT OF URINE. NO BM TODAY. MEPILEX REPLACED TO SACRAL EXCORIATION. MEPILEX TO L LAT THIGH INTACT. PT FOLLOWS COMMANDS AND IS ABLE TO FEED SELF WITH SET UP. AWAITING GAURDIANSHIP AND PLACEMENT. PT DENIES PAIN WHEN ASKED BUT MOANS WHEN MOVING AROUNG FOR TURNS. WILL REPORT TO NATALIA MALDONADO.
--- NOTE | 2022-04-14 05:51 | NUR ---
SUMMARY: PT ORIENTED TO SELF AND SURROUNDINGS. HE REMAINS ON BEDREST W/TURN SCHEDULE MAINTAINED AND PILLOWS PLACED FOR SUPPORT OF BONY PROMINENCES. MEPILEX DX TO COCCYX WAS CHANGED D/T BECOMING SOILED W/STOOL. BUTTOCKS AND EDY AREA IS RED AND EXCORIATED W/BREAKDOWN TO GLUTEAL CLEFT. CREAM AND MICONOZOLE POWDER APPLIED AND ATTENDS CHANGED PRN FOR STOOL AND URINE INCONTINENCE. HE TOLERATED PILLS CRUSHED IN PUDDING AND SWALLOWED REQUIRED WHOLE PILLS W/O ISSUES. DX'S TO R.POSTERIOR THIGH, BILAT FEET AND COCCYX REMAIN C/D/I W/WOUND CARE ORDERS AND DX CHANGES INDICATED ON CHART. NO ACUTE CHANGES, VSS/AFEBRILE. PLACEMENT AND GUARDIANSHIP BEING ARRANGED. ASPEN AND REPORT TO DAY RN.
--- NOTE | 2022-04-14 19:25 | NUR ---
SHIFT SUMMARY PT AxOx2-3. PLEASANT AND COOPERATIVE WITH CARE. PT HAS OCCASIONAL GARBLED SPEECH, BUT MOSTLY ABLE TO COMMUNICATE NEEDS VERBALLY. WOUND CARE PERFORMED ON BLE THIS SHIFT. POWERGLIDE REDRESSED THIS SHIFT. PT IS PHYSICALLY DECONDITIONED AND WORKED WITH PHYSICAL AND OCCUPATIONAL THERAPY TODAY. PT WAS LIFT TRANSFERRED TO RECLINER FOR PART OF THE DAY. PT IS INCONTINENT AND PERICARE WAS PROVIDED DURING ALL BRIEF CHANGES. CURRENT PLAN IS PENDING GUARDIANSHIP/PLACEMENT. VITALS REVIEWED. PT IS RESTING IN BED WITH CALL LIGHT IN REACH. DENIES ANY NEEDS AT THIS TIME.
[2022-04-15 16:01] LABS: Source, Urine Foley catheter
[2022-04-15 16:32] LABS: Appearance, Urine Hazy (Clear); Bilirubin, Urine Neg (Neg); Blood, Urine 2+ (Neg); Color, Urine Yellow (P-Yellow); Glucose Qualitative, Urine Neg (Neg); Ketones, Urine Neg (Neg); Leukocyte Esterase, Urine 3+ (Neg); Nitrite, Urine Neg (Neg); Protein, Urine 1+ (Neg); Urobilinogen, Urine NORM (Normal)
--- NOTE | 2022-04-15 16:45 | NUR ---
SHIFT SUMMARY PT GIVEN BEDBATH TODAY. DRESSING TO SACRUM CHANGED. NO VOID ALL AM. PT BLADDER SCANNED AND 497. AT APPROX 1400 PT ENCOURAGED TO VOID AND WAS ONLY ABLE TO PEE 50CC. DR. RAMOS NOTIFIED AND STRAIGHT CATH ORDER WAS OBTAINED. 3 FAILED STRAIGHT CATHS ATTEMPTED. PT ALSO C/O PAIN WITH EACH INSERTION. DR. RAMOS NOTIFED OF THIS AT APPROX 1520 INDWELLING CATH AND UROJET ORDER OBTAINED. QUINN NOW IN PLACE. PATENT & DRAINING. UA SENT TO LAB AFTER INSERTION. DR. PEREZ CALLED AND STATED HE WILL BE EVALUATING THE PT TOMORROW FOR POSSIBLE GAURDIANSHIP. NO OTHER ACUTE CHANGES IN ASSESSMENT AT THIS TIME. VS REVIEWED. CALL LIGHT IN REACH. PT RESTING IN BED. WITH EYES CLOSED.
[2022-04-15 17:07] LABS: Bacteria Mod /hpf; Squamous Epithelial Cells Rare /hpf (Few)
--- NOTE | 2022-04-16 06:16 | NUR ---
SHIFT SUMMARY PT A&O X 2- PT REFUSED AT BEGINNING OF SHIFT TO HAVE VITALS, REPOSITIONED, AND MEDICATIONS- PT AGREED TO FIRST REPOSITIONING AT 2230- BILAT LEGS FLOATED- QUINN CARE DONE AT THAT TIME- PT TOLERATED WELL - PT TURNED Q2H T/O SHIFT WITHOUT REFUSING-BED ALARM IN PLACE
--- NOTE | 2022-04-16 16:33 | NUR ---
SHIFT NOTE PT HAS BEEN UP IN RECLINER AT BEDSIDE. TOLERATED WELL. GOOD APPETITE. VSS. NO C/O OF PAIN. QUINN PATENT. DRAINING YELLOW URINE. CONTINUE POC.
--- NOTE | 2022-04-17 04:29 | NUR ---
CHINESE LANGUAGE PROFESSOR SUMMARY PT IS ALERT BUT PLEASANTLY CONFUSED THIS SHIFT. PT NOT USING HIS CALL LIGHT BUT CAN VERBALIZE HIS NEEDS WHEN ASKED. PT HAD UNEVENTFUL NIGHT HE WAS TRANSFERED FROM HIS CHAIR TO HIS BED AND SLEPT FOR THE MAJORITY OF THE SHIFT. PT VERY UNSTEADY ON HIS FEET HAVING DIFFICULTY COORDINATING HIS FOOTSTEPS TO GET WHERE HE WAS TRYING TO GO. BP STABLE BUT CONTINUES TO HAVE WIDE PULSE PRESSURE. O2 SATS >92% ON RM AIR. QUINN CATHETER IN PLACE AND DRAINING TO GRAVITY. WILL REPORT TO ONCOMING RN.
--- NOTE | 2022-04-17 17:07 | NUR ---
SUMMARY PT RESTING QUIETLY IN BED, WAKES EASILY, PLEASANTLY CONFUSED, UP TO THE CHAIR FOR SEVERAL HOURS TODAY, UP TO THE COMMODE WITH 2P ASSIST, PT WORKED WITH PT AND OT TODAY, VSS, NO COMPLAINTS, WILL CONT TO MONITOR
--- NOTE | 2022-04-18 06:11 | NUR ---
SHIFT SUMMARY PT A&O TO SELF- PT REPOSITION Q2H - PT BANDAGES C/D & I ON SACRUM, RIGHT POSTERIOR UPPER LEG, BILAT HEELS- PT CONTINUES TO HAVE RED RASH AROUND MEATUS - APPLIED CREAM AND POWDER WITH CATH CARE
--- NOTE | 2022-04-18 19:20 | NUR ---
SHIFT SUMMARY PTN AM BP 108/33, REPORTED TO DR OROZCO. BED BATH COMPLETED BY NADIA STERLING, THIS RN ASSIST. WOUND TO BUTTOCKS WITH MEPILEX C/D/I, WAS REPORTED TO BE REDDENED AREA BLANCHING. WOUND TO RIGHT HIP CLEANED AND DRESSED WITH MEPILEX. LEFT GREAT TOE AND SMALLER AREAS ON TOES 1-5 WITH ULCERATIONS, COVERED WITH XEROFOAM AND DRESSED WITH ROLLED GAUZE. PENIS RAW AND BARRIER CREAM AND SMALL DUSTING OF ANTIFUNGAL PLACED. UNDERARMS WITH SMALL AMOUNT OF REDDENED RAW AREAS, DUSTED WITH ANTIFUNGAL. PTN C/O DISCOMFORT WHEN MOVED. PTN UP TO CHAIR FOR EVENING MEAL, LIFT TRANSFER. QUINN FOR RETENTION IN PLACE AND DRAINING CLEAR YELLOW URINE TO GRAVITY.
--- NOTE | 2022-04-19 16:05 | NUR ---
SHIFT SUMMARY: NO NEW CHANGES THIS SHIFT. PATIENT IS PLEASANTLY CONFUSED AND COOPERATIVE WITH CARE. PATIENT WAS TRANSFERRED TO CHAIR USING CEILING LIFT c 2 MAX ASSIST THIS AM. PATIENT TOLERATED SITTING UP IN THE RECLINER CHAIR FOR BREAKFAST, LAST ABOUT 45 MINS AND REQUESTED TO BE TRANSFERRED BACK IN BED D/T PAINFUL BUTTOCKS. OFFERED PAIN MEDS, BUT PATIENT DECLINE. PATIENT HAS BEEN RESTING IN BED T/O THE DAY. Q2 TURN. RECEIVED BEDBATH AND LINEN CHANGED THIS SHIFT. DRESSING CHANGED TO BL FEET, BUTTOCKS AND L SIDE HIP PER WOUND CARE ORDER. QUINN PATENT DRAINING TO GRAVITY c YELLOW URINE. NO IV ACCESS PER ORDER. VITAL SIGNS REVIEWED. BED ALARM ON FOR SAFETY AND CALL LIGHT IN REACH.
--- NOTE | 2022-04-20 18:14 | NUR ---
SHIFT SUMMARY- PT HAS HAD NO ACUTE CHANGES T/O THE SHIFT. BP'S CONTINUE TO BE A LITTLE SOFT MD AWARE. PT REFUSED TO GET UP OUT OF BED TODAY. HE DECLINED LUNCH WHEN STAFF OFFERED TO GET HIM UP TO THE CHAIR SO HE CAN EAT. PT HAS SLEPT T/O THE DAY. NOTED SOME APNEA WHEN HE WOULD SLEEP ON HIS BACK HOB ELEVATED, AND THE ISSUE RESOLVED. COCCYX MEPILEX WAS CHANGED THIS SHIFT. THE OTHER MEPILEX ON THE BACK OF THE RIGHT THIGH WAS C/D/I SO NOT CHANGED, LEFT HEEL DRESSING WAS C/D/I WELL. PT IS CURRENTLY IN BED, CALL LIGHT IN REACH NO S&S OF DISTRESS NOTED WILL CTM AND PASS ON TO NIGHT RN IN BEDSIDE REPORT.
--- NOTE | 2022-04-21 04:43 | NUR ---
SHIFT SUMMARY PATIENT HAD NO ACUTE CHANGES OBSERVED. AXOX 2 WITH CONFUSION AT TIMES. HX ALZHEIMER. BEDREST/LIFT ROOM. NO IV ACCESS. TAKES MEDICATION WHOLE WITH WATER. QUINN PATENT AND DRAINING TO GRAVITY FOR RETENTION. DENIES PAIN, SOB, AND N/V. VSS/AFEBRILE. MEPILEX DRESSINGS INTACT. CALL LIGHT IN REACH. BED IN LOWEST POSITION. WILL CONTINUE TO MONITOR UNTIL DAY SHIFT NURSE ASSUMES CARE.
[2022-04-21 08:24] LABS: Hematocrit 34.5 % (37.0-53.0); Hemoglobin 10.5 g/dL (13.5-17.5)
[2022-04-21 08:56] LABS: Bun/Creatinine Ratio 41.2 (12.0-20.0); Calcium, Blood 9.1 mg/dL (8.5-10.1); Creatinine, Blood 0.66 mg/dL (0.60-1.20); Potassium, Blood 3.9 mmol/L (3.5-5.5)
--- NOTE | 2022-04-21 15:32 | NUR ---
WOUND CARE WOUND CARE DONE FOR BILATERAL FEET. PT SLEPT THROUGH IT. CONTINUE POC.
--- NOTE | 2022-04-21 18:20 | NUR ---
EVENING NOTE PT UP ION CHAIR MOST OF THE DAY. PPLACED AN EGG CRATE IN THE CHAIR FOR PT SKIN COMFORT AND SKIN PROTECTION. HE SLEPT THROUGH HIS WOUND CARE THIS AFTERNOON. POOR APPETITE. NEEDS REMINDING TO EAT/DRINK. CONTINUE POC.
--- NOTE | 2022-04-22 05:22 | NUR ---
SHIFT SUMMARY: PT IS ALERT AND ORIENTED X 1-2. PT REQUIRES A LIFT FOR TRANSFER, NOT OUT OF BED OVERNIGHT. PT DOES NOT USE HIS CALL LIGHT AT TIMES, CALLS OUT FOR ASSISTANCE. PT SHOWS NO S/S FOR PAIN, NAUSEA, VOMITING, OR SOB. QUINN PATENT AND DRAINING YELLOW URINE. AWAITING PLACEMENT. NO ACUTE CHANGES OR COMPLICATIONS THIS SHIFT. BED IN LOW POSITION, CALL LIGHT WITHIN REACH. WILL REPORT TO DAY NURSE.
--- NOTE | 2022-04-22 13:43 | NUR ---
SEROQUEL PT WAS UP IN CHAIR, CLINICAL STAFF RN RELATED THAT HE WAS CALLING HER A BITCH ANF TREATENING HER. WENT IN TO SEE WHAT WAS UP. PT WAS YELLING, CALLED THIS NURSE A BITCH AND SHOVED HIS LUNCH TRAY ON THE FLOOR. HE WAS SCREAMING OBSENITIES AND SCREAMING FOR A DOCTOR. HE WAS SCREAMING THAT HE HURT. MEDICATED WITH TYLENOL AND SEROQUEL PER ORDER. CONTINUE POC.
--- NOTE | 2022-04-22 16:39 | NUR ---
PT HAD A CALM MORNING. BED BATH, UP INTO CHAIR. SLEPT THROUGH WOUND CARE AGAIN. AT LUNCH HE STARTED YELLING, CUSSING, THROWING. WAS NOT REDIRECTABLE. BECAME MORE AGGITATED. STEPPED OUT FOR SEVERAL MINUTES. THEN REENTERED LIKE NOTHING WAS GOING ON. BROUGHT SEROQUEL AND TYLENOL. HGE WAS STILL EDGY BUT HE TOOK THE MEDICATIONS. AFTER HE SNOOZED FOR A BIT. WE USED THE CEILING LIFT TO MOVE HIM BACK TO BED. HE COOPERATED AND WAS QUITE COMFORTABLE. CONTINUE POC.
--- NOTE | 2022-04-23 00:57 | NUR ---
04/22/22 PT LYING IN BED, DENIES ANY DISCOMFORT AT THIS TIME. ASSISTED UNIT TENDER IN TURNING AND CHANGING THE PT. HE TOLERATED THIS WELL. DENIES NEED FOR ANYTHING ELSE AT THIS TIME. NO OTHER APPARENT SIGNS OF DISTRESS. CALL LIGHT IS IN REACH.
--- NOTE | 2022-04-23 01:11 | NUR ---
0000 PT LYING IN BED, EYES CLOSED,APPEARS TO BE RESTING. BREATHING IS EVEN, UNLABORED. NO APPARENT SIGNS OF DISTRESS. CALL LIGHT IS IN REACH.
--- NOTE | 2022-04-23 02:08 | NUR ---
PT LYING IN BED,EYES CLOSED, APPEARS TO BE RESTING.BREATHING IS EVEN, UNLABORED. NO APPARENTSIGNS OF DISTRESS. CALL LIGHT IS IN REACH.
--- NOTE | 2022-04-23 05:20 | NUR ---
0400 PT LYING IN BED, EYES CLOSED, APPEARS TO BE RESTING. WAKES EASILY TO VERBAL STIMULI. NO APPARENT SIGNS OF DISTRESS. CALL LIGHT IS IN REACH.
--- NOTE | 2022-04-23 05:21 | NUR ---
PT IS AAO TO SELF ONLY, BUT VERY PLEASANT. HE DOES CALL OUT, HAS CONVERSATIONS WITH PEOPLE WHO ARE NOT THERE, SINGS, AND MOANS. DENIED ANY DISCOMFORT FOR THIS SHIFT.
--- NOTE | 2022-04-23 05:42 | NUR ---
PT LYING IN BED, CONVERSATION WITH SOMEONE WHO IS NOT THERE ABOUT "GET OUT OF MY HOUSE, I WILL CALL THE DIRECTOR MARKETING", GAVE THE PT SOME SEROQUEL, WILL EVAL FOR EFFECT. NO OTHER APPARENT SIGNS OF DISTRESS. CALL LIGHT IS IN REACH. NO OTHER CHANGES THIS SHIFT.
--- NOTE | 2022-04-23 19:03 | NUR ---
RECEIVED REPORT FROM THERESE MALDONADO. PT LYING IN CHAIR. IS A LIFT PT. RESP E/U ON RA. PT APPEARS COMFORTABLE AT THIS TIME. WILL CONTINUE TO PROVIDE CARE T/O SHIFT. CALL LT IN REACH.
--- NOTE | 2022-04-23 19:58 | NUR ---
PT RESTING IN CHAIR AT THIS TIME. CALL LT IN REACH.
--- NOTE | 2022-04-23 20:20 | NUR ---
PT REPOSITIONED FOR COMFORT. CALL LT IN REACH.
--- NOTE | 2022-04-23 20:25 | NUR ---
PT TOOK MEDS WHOLE WITH ENSURE WITHOUT DIFFICULTY. HARD TO UNDERSTAND AT TIMES D/T PT HAS NO UPPER TEETH. ATE SOME OF HIS DINNER, PEACHES, AND ROLL WITH BUTTER, DRANK HIS ENSURE AND MILK WITHOUT DIFFICULTY. NO COMPLAINTS OF PAIN OR SOB. WILL CONTINUE TO PROVIDE CARE. CALL LT IN REACH.
--- NOTE | 2022-04-23 22:20 | NUR ---
PT REPOSITIONED FOR COMFORT. NO OTHER NEEDS. CALL LT IN REACH.
--- NOTE | 2022-04-24 00:13 | NUR ---
REPOSITIONED PT FOR COMFORT. NO OTHER NEEDS. CALL LT IN REACH.
--- NOTE | 2022-04-24 01:05 | NUR ---
PT RESTING, SNORING, CALL LT IN REACH.
--- NOTE | 2022-04-24 02:00 | NUR ---
REPOSITIONED PT FOR COMFORT. BARRIER CREAM APPLIED TO EXCORIATED BUTTOCKS. NO OTHER NEEDS. CALL LT IN REACH.
--- NOTE | 2022-04-24 04:21 | NUR ---
PT RESTING COMFORTABLY AFTER TYLENOL AND AN ENSURE. CALL LT IN REACH.
--- NOTE | 2022-04-24 04:23 | NUR ---
SHIFT SUMMARY: ALERT TO NAME, AWAKENS EASILY. RESTED WELL T/O SHIFT. USED LIFT TO TRANSFER FROM RECLINER TO BED. PT TOLERATED WELL. REPOSITIONED PT EVERY TWO HRS. BARRIER CREAM APPLIED TO BUTTOCKS AND PERIAREA. ON RA. QUINN CATHETER PATENT AND DRAINING ALYSIA COLOR URINE. ABLE TO DRINK ORAL FLUIDS INDEPENDENTLY WITHOUT CHOKING OR COUGHING. TOOK MEDS WHOLE WITH ENSURE. NO ACUTE CHANGES. AWAITING PLACEMENT. WILL CONTINUE TO PROVIDE CARE UNTIL SHIFT REPORT.
--- NOTE | 2022-04-24 04:48 | NUR ---
PT GIVEN PRN SEROQUEL FOR AGITATION. PT TOOK MED WHOLE WITHOUT DIFFICULTY. CALL LT IN REACH.
--- NOTE | 2022-04-24 05:48 | NUR ---
PT REPOSITIONED FOR COMFORT. PT RESTING QUIETLY. CALL LT IN REACH.
--- NOTE | 2022-04-24 11:34 | NUR ---
MEPILEX TORIGHT THIGH CHANGED, WOUND CLEANSED. MEPILEX NOW C/D/I.
--- NOTE | 2022-04-24 12:21 | NUR ---
NO ACUTE CHANGES SINCE ASSUMPTION OF CARE AT 0700. PATIENT VERY SLEEPY TODAY, AWAKES WITH VERBAL STIMUL BUT GOES RIGHT BACK TO SLEEP. Q2 TURNS, PATIENT ALLOWS. HAS NOT SHOWN USE OF CALL LIGHT, BUT IN REACH.
--- NOTE | 2022-04-24 18:27 | NUR ---
Assumed care of patient at 1300, handoff report given by RN. Patient resting comfortably in bed. Respirations even/nonlabored. Bilateral feet wrapped in Kerlix, CDI. Vitals stable. Will continue plan of care, awaiting placement.
--- NOTE | 2022-04-25 06:04 | NUR ---
RN EMERGENCY SUMMARY: A&Ox2-3. DOES NOT CALL AND IS ABLE TO COMMUNICATE SOME OF HIS NEEDS EFFECTIVELY. WOUNDS TO BILATERAL FEET WITH GAUZE. MEPILEX TO RIGHT HIP. Q2h TURNS TO REPOSITION. BEDREST WITH LIFT FOR TRANSFERS. MEDICATED x2 T/O NIGHT W/ PRN APAP FOR C/O LEG PAIN. VSS. AWAITING AVAILABLE PLACEMENT FOR MEMORY CARE. WILL REPORT TO ONCOMING RN.
--- NOTE | 2022-04-25 15:36 | NUR ---
SHIFT SUMMARY PT RESTING QUIETLY AT START OF SHIFT. WOKE FOR CARE, BUT PT HAS REMAINED VERY DROWSY THRU OUT THE DAY. WOKE FOR PO MEDS; TAKEN W/O DIFFICULTY WITH WATER. BED BATH AND LINEN CHANGE DONE. DRSG'S TO POSTERIOR L THIGH AND COCCYX CHANGED. WOUNDS TO BUTTOCKS/COCCYX AND POSTERIOR THIGH WITH EROSION TO PENIS. PT REPOSITIONED THUR OUT THE DAY TO KEEP OFF BUTTOCKS. LEGS ELEVATED WITH PILLOWS. NO C/O PAIN BEFORE, DURING, OR AFTER REPOSITIONING. THERAPY ATTEMPTED TO WORK WITH PT TODAY. PER REPORT, PT CONTINUES TO WAIT FOR PLACEMENT TO MEMORY CARE. BED ALARM ON FOR SAFETY. CALL LT IN REACH.
--- NOTE | 2022-04-26 03:13 | NUR ---
DRY WALL INSTALLATIONS MECHANIC SUMMARY BP WAS LOW AND HR WAS 59, SO HS METOPROLOL WAS HELD (SEE DOC FLOW SHEETS FOR DETAILS). ASYMPTOMATIC. HAS BEEN LETHARGIC THROUGH MOST OF SHIFT, TOLERATED HS MEDS WELL. HAS BEEN RESTING QUIETLY WITH FEW INTERRUPTIONS. REPOSITIONED ABOUT EVERY 2 HRS. QUINN DRAINING CLEAR. NOTE SOME SWELLING AND VOICED PAIN OF PENIS AREA. RECEIVED TYLENOL FOR PAIN AND QUINN ADJUSTED (WAS PULLING AT PENIS). PT VOICED MORE COMFORTABLE AFTER. WILL HAVE AM MONITOR FOR ANY INCREASED SWELLING, ETC. HOB REMAINS ELEAVTED FOR COMFORT IN BREATHING. CALL LIGHT IN REACH.
--- NOTE | 2022-04-26 13:59 | NUR ---
SHIFT SUMMARY NO ACUTE CHANGES TO PRESENT THIS SHIFT. PT REMAINS DROWSY AND LETHARGIC AGAIN TODAY. DR RAYMUNDO IN TO SEE PT THIS AM; NIGHT TIME SEROQUEL DOSE ADJUSTED. PT UP IN CHAIR BEFORE START OF SHIFT. PT LATER BACK TO BED LATE MORNING. NO C/O. WAKES FOR CARE BRIEFLY TO TAKE MEDICATIONS OR ANS QUESTIONS, BUT GOES RIGHT BACK TO SLEEP. DENIED FURTHER NEEDS AT THIS TIME. BED ALARM ON FOR SAFETY. CALL LT IN REACH.
--- NOTE | 2022-04-26 18:08 | NUR ---
PT SITTING UP IN BED, EATING DINNER, FEEDING HIMSELF. AWAKE AND ALERT.
--- NOTE | 2022-04-27 06:34 | NUR ---
SHIFT SUMMARY NOC PT A/OX 2-3. PT PLEASANT AND COOPERATIVE TO CARE. PT ABLE TO TAKE RX WITH NO ISSUES IN WHOLE IN APPLE SAUCE. PT SLEPT THE ENTIRETY OF SHIFT. PT VSS. WCTM. PT CURRENTLY RESTING WITH BED RAILS UP, BED IN LOWEST POSITION, AND CALL LIGHT WIHTIN REACH.
--- NOTE | 2022-04-27 18:35 | NUR ---
SHIFT SUMMARY: PT A&O X3/4, CONFUSED WITH TIME. PT SLEPT MOST OF THE SHIFT. PT EASILY AROUSED AND COMMUNICATES WITH STAFF. PT FALLS BACK ASLEEP W/O INTERACTION. PT RECEVIED WOUND CARE TO BUTTUCKS, RIGHT POSTERIOR THIGH, AND BL TOES. PT DECLINED TO GET OUT OF BED FOR MEALS. PT ABLE TO ATE MEALS INDEPENADNTLY AND AWAKE THROUGHOUT THE MEAL. PT TURNED FREQUENTLY THROUGHOUT THE SHIFT. PT IN BED WITH CALL LIGHT WITHIN REACH.
--- NOTE | 2022-04-28 04:18 | NUR ---
SHIFT SUMMARY NOC PT A/O X 3. PT STILL SOMULENT FOR MOST OF SHIFT. PT QUINN STILL PATENT AND DRAINING YELLOW URINE TO GRAVITY. PT WOUND DRESSING C/D/I T/O. WCTM. PT PLEASANT AND COOPERATIVE TO CARE. PT STILL WAITING ON BED FOR PLACEMENT [facility]. PT CURRENTLY RESTING WITH BED RAILS UP, BED IN LOWEST POSITION, AND CALL LIGHT WITHIN REACH
--- NOTE | 2022-04-28 16:57 | NUR ---
SHIFT SUMMARY NO ACUTE CHANGES THIS SHIFT. WOUND CLINIC CONSULTED AND CHANGED HIS BLE WOUNDS, JOEL AUSTIN FROM THE WOUND CLINIC, STATED SHE WOULD BE BACK IN THE AM TO ASSESS HIS HIP AND BUTTOCK WOUNDS. HE WAS IN THE CHAIR FOR BREAKFAST AND LUNCH, HE IS NOW BACK IN BED. WILL REPORT TO ONCOMING NURSE.
--- NOTE | 2022-04-29 06:04 | NUR ---
A/OX2-3; CALM AND COOPERATIVE WITH CARE. Q2 TURNS; 2X ASSIST. DARRON LIFT FOR TRANSFER TO CHAIR. C/O L HIP PAIN; PRN TYLENOL GIVEN; HELPFUL PER PATIENT. QUINN FOR RETENTION (PATENT). DRESSING TO POSTERIOR THIGH WOUND AND BUTTOCK CDI. BED ALARM SET. CALL LIGHT IN REACH; ENCOURAGED TO MAKE NEEDS KNOWN.
--- NOTE | 2022-04-29 16:33 | NUR ---
SHIFT SUMMARY NO ACUTE CHANGES THIS SHIFT. MEPALEX ON COCCYX AND R THIGH WERE CHANGED TODAY, WOUND CARE CONSULTED ON THOSE WOUNDS SPECIFICALLY AND CHANGED WOUND CARE ORDERS. HE HAS BEEN REPOSITIONED THROUGHOUT THE SHIFT. HE ALSO RECEIVED A BED BATH AND A NEW LIFT SHEET. HE REMAINS AOX2-3. STILL AWAITING PLACEMENT. PT SLEPT A MAJORITY OF THE SHIFT. WILL REPORT TO ONCOMING NURSE.
--- NOTE | 2022-04-30 17:11 | NUR ---
SHIFT SUMMARY NO ACUTE CHANGES THIS SHIFT. MEPALEX ON ANTERIOR RIGHT THIGN AND COCCYX WERE CHANGED TODAY AND DRESSED PER THE WOUND CLINIC ORDERS. PT WAS UP IN THE CHAIR TODAY FOR LUNCH. HE HAS BEEN SLEEPING A MAJORITY OF THE SHIFT, BUT AROUSABLE. HE HAD A BM THIS AM. HE WORKED WITH PT AND OT TODAY. WILL REPORT TO ONCOMING NURSE.
--- NOTE | 2022-05-01 03:28 | NUR ---
SHIFT SUMMARY NO OVERNIGHT EVENTS. NO CHANGES IN PT CONDITION. PT ORIENTED X2/3, PLEASANT AND COOPERATIVE. CALLING OUT ON/OFF, REDIRECTABLE. CONTINUES [id number]. CHRONIC QUINN IN PLACE, DRAINING YELLOW URINE. DENIES ANY CP/SOB/ S/S OF DISTRESS. PT ABLE TO USE CALL LIGHT, IN REACH. WAITING FOR PLACEMENT FOR PT.
[2022-05-01 04:55] LABS: Hematocrit 34.7 % (37.0-53.0); Hemoglobin 10.9 g/dL (13.5-17.5); Mean Corpuscular HGB 26.8 pg (26.0-34.0); Mean Corpuscular HGB Conc 31.4 g/dL (31.5-36.5); Mean Corpuscular Volume 85 fL (80-100); Platelet Count 100 K/mm3 (150-400); RDW Coefficient Variation 17.9 % (11.7-14.2); RDW Standard Deviation 55.9 fL (35.1-46.3); Red Blood Cell Count 4.07 M/mm3 (4.30-5.90); White Blood Cell Count 6.31 K/mm3 (4.00-11.30)
[2022-05-01 05:20] LABS: Albumin, Blood 2.8 g/dL (3.4-5.0); Anion Gap 3 mmol/L (6-16); Blood Urea Nitrogen 26 mg/dL (8-24); Bun/Creatinine Ratio 40.3 (12.0-20.0); CO2, Blood 30 mmol/L (21-32); Calcium, Blood 8.8 mg/dL (8.5-10.1); Chloride, Blood 109 mmol/L (98-108); Creatinine, Blood 0.65 mg/dL (0.60-1.20); Glomerular Filtration Rate 92 (60-); Glucose, Blood 99 mg/dL (70-99); Phosphorus, Blood 3.1 mg/dL (2.5-4.9); Sodium, Blood 142 mmol/L (136-145)
[2022-05-01 14:36] LABS: SARS-Cov-2 (COVID-19) Antigen Negative (NEGATIVE)
--- NOTE | 2022-05-01 18:14 | NUR ---
SHIFT SUMMARY: NO NEW CHANGES c PATIENT CONDITION THIS SHIFT. PATIENT A&OX3. [place]. PATIENT WAS SITTING UP IN THE RECLINER CHAIR FOR LUNCH AND TOLERATED SITTING UP FOR ABOUT 2 HRS. PATIENT REQUESTED TO TRANSFERRED BACK IN BED. DRESSING CHANGED TO BLE, R POSTERIOR THIGH AND COCCYX PER WOUND CARE ORDER. REPOSITIONED T/O SHIFT. NO IV ACCESS PER ORDER. RECEIVED CALLED FROM DR. RAMOS AROUND 1525 TO START PATIENT c BLADDER TRAINING AND THEN DC'D QUINN. BLADDER TRAINING WAS STARTED AT 1530. VITAL SIGNS REVIEWED. PLAN TO DC PATIENT TOMORROW TO [facility]. BED ALARM ON FOR SAFETY AND CALL LIGHT IN REACH.
--- NOTE | 2022-05-02 03:43 | NUR ---
SHIFT SUMMARY NO OVERNIGHT EVENTS. QUINN REMOVED, PT ABLE TO VOID IN URINAL ONCE. NOT TAKING IN ALOT OF FLUIDS. BM 05/02, LARGE. CONTINUES [id number]. DRSG TO WOUNDS C/D/I. CALL LIGHT IN REACH, ABLE TO MAKE NEEDS KNOWN.
[2022-05-02] MEDS ORDERED: METO25ER PO (10:18)
[2022-05-02] MEDS ORDERED: QUET25 PO (10:18)
--- NOTE | 2022-05-02 11:50 | NUR ---
SHIFT SUMMARY PTN TRANSPORT TO [facility], [place] . TRANSPORT AT 1045, REPORT GIVEN TO [place], PAPERWORK ACCOMPANIED TRANSPORT.
== END 2022-05-02 10:53 | disposition home or self-care (01) | DRG 871 ==
LOC: ER 11:40 → ICUW 16:40 → MEDS 16:40 → PCU 16:40 → ICUE 17:17 → PCU 04-01 19:17 → MEDS 04-05 12:42
PROVIDERS: Emergency Medicine; Internal Medicine; ADMIT Internal Medicine
DX: A41.9 Sepsis, unspecified organism (principal); G92.8 Other toxic encephalopathy; L89.613 Pressure ulcer of right heel, stage 3; L89.623 Pressure ulcer of left heel, stage 3; J18.9 Pneumonia, unspecified organism; M62.82 Rhabdomyolysis; E87.21 Acute metabolic acidosis; L03.115 Cellulitis of right lower limb; L03.116 Cellulitis of left lower limb; N39.0 Urinary tract infection, site not specified; F01.518 Vascular dementia, unspecified severity, with other behavioral disturbance; Z20.822 Contact with and (suspected) exposure to COVID-19; Z68.35 Body mass index [BMI] 35.0-35.9, adult; Z28.21 Immunization not carried out because of patient refusal; B96.20 Unspecified Escherichia coli [E. coli] as the cause of diseases classified elsewhere; I73.9 Peripheral vascular disease, unspecified; E87.70 Fluid overload, unspecified; I89.0 Lymphedema, not elsewhere classified; R65.20 Severe sepsis without septic shock; T68.XXXA Hypothermia, initial encounter; E66.9 Obesity, unspecified; F17.210 Nicotine dependence, cigarettes, uncomplicated; N40.0 Benign prostatic hyperplasia without lower urinary tract symptoms; L30.4 Erythema intertrigo; B37.2 Candidiasis of skin and nail; E83.39 Other disorders of phosphorus metabolism; Z85.51 Personal history of malignant neoplasm of bladder; Z98.890 Other specified postprocedural states; Z79.82 Long term (current) use of aspirin; Z79.899 Other long term (current) drug therapy
CPT/HCPCS: 0241U; 36415; 36600; 51703; 70450; 71045; 80048; 80053; 80069; 81001; 82140; 82550; 82553; 82803; 82947; 83605; 83690; 83735; 83880; 83930; 84145; 84439; 84484; 85014; 85018; 85025; 85027; 85610; 85730; 87040; 87077; 87086; 87186; 87426; 93005; 93010; 93306; 96361; 96374; 97110; 97110-CQ; 97129; 97162; 97166; 97530; 97535; 99285-25; A9270; C1751; C9113; C9803; G0480; J0456; J0696; J1170; J1650; J1940; J3411; J3480; J7030; J7042; J7050; J7060